=== PATIENT | male | born 1965 | race African-American/Black ===

== ENCOUNTER 2017-07-20 13:39 | Inpatient (IN) | payer OTHER ==
[2017-07-20 16:12] VITALS: BMI 31.0
--- NOTE | 2017-07-20 19:00 | HP ---
COWS - Scale Resting Pulse: 0= IN 80 or Below Sweatin= Chills/Flushing Restless Observation: 1= Difficult to Sit Still Pupil Size: 0= Normal to Room Light Bone or Joint Aches: 2= Severe Diffuse Aches Runny Nose/ Eye Tearin= Runny Nose/Eyes GI Upset > 30mins: 2= Nausea/Diarrhea Tremor Observation: 2= Slight Tremor Visible Yawning Observation: 0= None Anxiety or Irritability: 2=Irritable/Anxious Goose Flesh Skin: 3=Piloerection COWS Score: 15 CIWA Score - CIWA Score Nausea/Vomitin-Mild Nausea/No Vomiting Muscle Tremors: 4-Moderate,w/Arms Extend Anxiety: 4-Mod. Anxious/Guarded Agitation: 4-Moderately Restless Paroxysmal Sweats: 1-Minimal Palms Moist Orientation: 1-Uncertain about Date Tacttile Disturbances: 0-None Auditory Disturbances: 0-None Visual Disturbances: 0-None Headache: 0-None Present CIWA-Ar Total Score: 15 Admission [facility] - HPI Chief Complaint: withdrawal sx Allergies/Adverse Reactions: Allergies Allergy/AdvReac Type Severity Reaction Status Date / Time haloperidol [From Haldol] AdvReac Verified 07/20/17 19:02 haloperidol lactate AdvReac Verified 07/20/17 19:02 [From Haldol] History of Present Illness: 52 years old male with long history of heroin alcohol xanax nicotine dependence has herpes complex II and schizoaffective disorder is admitted to detox Exam Limitations: No Limitations - Ebola screening Have you traveled outside of the country in the last 21 days: No Have you had contact with anyone from an Ebola affected area: No Have you been sick,other than usual withdrawal symptoms: No Do you have a fever: No - Review of Systems Constitutional: Changes in sleep, Weight Stable EENT: reports: No Symptoms Reported Respiratory: reports: No Symptoms reported Cardiac: reports: No Symptoms Reported GI: reports: Nausea, Poor Fluid Intake, Abdominal cramping : reports: No Symptoms Reported Musculoskeletal: reports: Back Pain, Joint Pain, Muscle Pain, Neck Pain Integumentary: reports: Change in Color (both upper arms iv heroin) Neuro: reports: Seizure (last episode 2011), Tremors Endocrine: reports: No Symptoms Reported Hematology: reports: No Symptoms Reported Psychiatric: reports: Judgement Intact, Anxious, Depressed Other Systems: Reviewed and Negative Patient History - Patient Medical History Hx Anemia: No Hx Asthma: No Hx Chronic Obstructive Pulmonary Disease (COPD): No Hx Cancer: No Hx Cardiac Disorders: No Hx Congestive Heart Failure: No Hx Hypertension: No Hx Hypercholesterolemia: No Hx Pacemaker: No HX Cerebrovascular Accident: No Hx Seizures: No Hx Dementia: No Hx Diabetes: No Hx Gastrointestinal Disorders: No Hx Liver Disease: No Hx Genitourinary Disorders: No Hx Sexually Transmitted Disorders: No Hx Renal Disease (ESRD): No Hx Thyroid Disease: No Hx Human Immunodeficiency Virus (HIV): No Hx Hepatitis C: No Hx Depression: No Hx Suicide Attempt: Yes (1974 over dose) Hx Bipolar Disorder: No Hx Schizophrenia: Yes - Patient Surgical History Past Surgical History: No - PPD History Previous Implant?: Yes Documented Results: Negative w/o proof Implanted On Prior [facility] Admission?: No PPD to be Administered?: Yes - Smoking Cessation Smoking history: Current every day smoker Have you smoked in the past 12 months: Yes Aproximately how many cigarettes per day: 8 Cigars Per Day: 0 Hx Chewing Tobacco Use: No Initiated information on smoking cessation: Yes 'Breaking Loose' booklet given: 07/20/17 - Substance & Tx. History Hx Alcohol Use: Yes Hx Substance Use: Yes Substance Use Type: Alcohol, Cocaine, Heroin, Marijuana, Tranquilizers Hx Substance Use Treatment: Yes (04/2017 [facility]) - Substances Abused Alcohol Route: Oral Frequency: Daily Amount used: PINT [id number]+[id number] Age of first use: 12 Date of Last Use: 07/20/17 Alprazolam (Xanax) Route: Oral Frequency: Daily Amount used: 10 MG Age of first use: 26 Date of Last Use: 07/20/17 Heroin Route: Injection Frequency: Daily Amount used: 10 BAGS Age of first use: 26 Date of Last Use: 07/20/17 Family Disease History - Family Disease History Family Disease History: CA: Mother, Other: Father (/UNKNOWN CAUSE) Admission Physical Exam [facility] - Vital Signs Vital Signs: Vital Signs - 24 hr 07/20/17 16:09 Temperature 97.7 F Pulse Rate 76 Respiratory 18 Rate Blood Pressure 130/84 - Physical General Appearance: Yes: Appropriately Dressed, Mild Distress, Obese, Tremorous , Irritable, Sweating, Anxious HEENTM: Yes: Hearing grossly Normal, Normal ENT Inspection, Normocephalic, Normal Voice Respiratory: Yes: Chest Non-Tender, Lungs Clear, Normal Breath Sounds, No Respiratory Distress, No Accessory Muscle Use Neck: Yes: Supple, Trachea in good position Breast: Yes: Breasts Symetrical Cardiology: Yes: Regular Rhythm, Regular Rate, S1, S2 Abdominal: Yes: Non Tender, Soft, Increased Bowel Sounds Genitourinary: Yes: Within Normal Limits Back: Yes: Normal Inspection Musculoskeletal: Yes: full range of Motion, Gait Steady, Back pain, Muscle Pain Extremities: Yes: Normal Inspection, Normal Range of Motion, Non-Tender, Tremors Neurological: Yes: Alert, Motor Strength 5/5, Normal Response Integumentary: Yes: Warm, Track Flores Lymphatic: Yes: Within Normal Limits - Diagnostic (1) Alcohol dependence with uncomplicated withdrawal Current Visit: Yes Status: Acute (2) Opioid dependence with withdrawal Current Visit: Yes Status: Acute (3) Sedative, hypnotic or anxiolytic dependence with withdrawal, uncomplicated Current Visit: Yes Status: Acute (4) Cocaine dependence, uncomplicated Current Visit: Yes Status: Chronic (5) Cannabis dependence, uncomplicated Current Visit: Yes Status: Chronic (6) Herpes simplex complications Current Visit: Yes Status: Chronic (7) Nicotine dependence Current Visit: Yes Status: Acute Qualifiers: Nicotine product type: cigarettes Substance use status: in withdrawal Qualified Code(s): F17.213 - Nicotine dependence, cigarettes, with withdrawal; F17.213 - Nicotine dependence, cigarettes, with withdrawal Cleared for Admission S - Detox or Rehab [facility] Level of Care: Medically Managed Detox Regimen/Protocol: Methadone/Valium S Breath Alcohol Content Breath Alcohol Content: 0 Urine Drug Screen - Results Drug Screen Negative: No Urine Drug Screen Results: THC-Marijuana, POLO-Cocaine, OPI-Opiates, BZO- Benzodiazepines, MTD-Methadone
[2017-07-20] MEDS ORDERED: IBUPROFEN 400 MG TABLET (FP) PO PRN (19:15)
[2017-07-20] MEDS ORDERED: METHADONE HCL 10 MG TABLET (FOR DETOX USE ONLY) PO ONE ×2 (19:15→23:00)
[2017-07-20] MEDS ORDERED: P-EPHED 60MG/TRIPROLIDI 2.5MG TABLET PO PRN (19:15)
[2017-07-20] MEDS ORDERED: guaiFENesin/D-METHORPHAN HB 10 ML UNIT-DOSE CUPS PO PRN (19:15)
[2017-07-20] MEDS ORDERED: diphenhydrAMINE HCL 50 MG CAPSULE PO PRN (19:15)
[2017-07-20] MEDS ORDERED: MAG HYDROX/AL HYDROX/SIMETH 30 ML UNIT-DOSE CUP PO PRN (19:15)
[2017-07-20] MEDS ORDERED: diazePAM 5 MG TABLET PO ONE (19:15)
[2017-07-20] MEDS ORDERED: ACETAMINOPHEN 325 MG TABLET (FP) PO PRN (19:15)
[2017-07-20] MEDS ORDERED: MAGNESIUM CITRATE 300 ML BOTTLE PO PRN (19:15)
[2017-07-20] MEDS ORDERED: MENTHOL/PHENOL 1 EACH UD MM PRN (19:15)
[2017-07-20] MEDS ORDERED: MAGNESIUM HYDROX 2400MG/30ML ORAL SUSPENSION 30 ML CUP PO PRN (19:15)
[2017-07-20] MEDS ORDERED: METHADONE HCL 10 MG TABLET (FOR DETOX USE ONLY) ONE (21:32)
[2017-07-20] MEDS: THIAMINE HCL 100 MG TABLET (FP) PO SCH (21:39)
[2017-07-20] MEDS: diazePAM 5 MG TABLET PO SCH (21:39)
[2017-07-20] MEDS: NICOTINE POLACRILEX 2 MG GUM BC PRN (23:11)
[2017-07-21 00:09] LABS: URINE APPEARANCE SLCLOUDY; URINE BILIRUBIN NEGATIVE (NEGATIVE); URINE BLOOD NEGATIVE (NEGATIVE); URINE COLOR DKYELLOW; URINE GLUCOSE (UA) NEGATIVE (NEGATIVE); URINE KETONE NEGATIVE (NEGATIVE); URINE NITRITE NEGATIVE (NEGATIVE); URINE PROTEIN NEGATIVE (NEGATIVE); URINE UROBILINOGEN NEGATIVE mg/dL (0.2-1.0)
[2017-07-21] MEDS: diazePAM 5 MG TABLET PO SCH ×3 (05:08→22:40)
[2017-07-21] MEDS: NICOTINE POLACRILEX 2 MG GUM BC PRN ×5 (07:50→20:07)
[2017-07-21] MEDS: diazePAM 5 MG TABLET PO PRN ×2 (09:11→18:24)
[2017-07-21] MEDS ORDERED: METHADONE HCL 10 MG TABLET (FOR DETOX USE ONLY) PO SCH (10:00)
[2017-07-21] MEDS: PRENATAL VITAMINS W/ FOLIC ACID TABLET (FP) PO SCH (10:21)
[2017-07-21] MEDS: NICOTINE 14 MG/24 HOURS TOPICAL PATCH TD SCH (10:21)
[2017-07-21] MEDS: valACYclovir HCL 500 MG TABLET (FP) PO SCH (10:22)
[2017-07-21 10:41] LABS: ALBUMIN 3.6 g/dl (3.4-5.0); ALK PHOS 88 U/L (45-117); ANION GAP 8 (8-16); BILIRUBIN,TOTAL 0.4 mg/dL (0.2-1.0); CALCIUM 8.8 mg/dL (8.5-10.1); CO2 25 mmol/L (21-32); GLUCOSE,RANDOM 87 mg/dL (74-106); SGOT/AST 15 U/L (15-37); SGPT/ALT 24 U/L (12-78); TOT PROT 6.8 g/dl (6.4-8.2)
[2017-07-21 10:46] LABS: MCH 30.1 pg (25.7-33.7); MCHC 33.2 g/dl (32.0-35.9); MEAN CELL VOLUME 90.4 fl (80-96); MEAN PLT VOLUME 10.8 fl (7.5-11.1); PLATELET COUNT 250 K/MM3 (134-434); RDW 12.1 % (11.9-15.9); WHITE BLOOD COUNT 6.4 K/mm3 (4.0-10.0)
--- NOTE | 2017-07-21 11:26 | CONSULT ---
[facility] Psychiatric Consult - Data Date of interview: 07/21/17 Admission source: [facility] Identifying data: First admission to [facility] for this 52 y/o AA male seeking detox treatment on for alcohol,cocaine,heroin,marijuana and xanax dependence.Patient is in a common-law relationship,father of two,domiciled, unemployed and supported on SSI benefits. Substance Abuse History: Discussed in this session.Patient confirmed this pattern of substance abuse. Smoking Cessation. Smoking history: Current every day smoker. Have you smoked in the past 12 months: Yes. Aproximately how many cigarettes per day: 8. Cigars Per Day: 0. Hx Chewing Tobacco Use: No. Initiated information on smoking cessation: Yes. 'Breaking Loose' booklet given : 07/20/17. - Substance & Tx. History. Hx Alcohol Use: Yes. Hx Substance Use : Yes. Substance Use Type: Alcohol, Cocaine, Heroin, Marijuana, Tranquilizers. Hx Substance Use Treatment: Yes (04/2017 [facility]). - Substances Abused. Alcohol. Route: Oral. Frequency: Daily. Amount used: PINT VOLKA+24OZX3. Age of first use: 12. Date of Last Use: 07/20/17. Alprazolam (Xanax). Route: Oral. Frequency: Daily. Amount used: 10 MG. Age of first use: 26. Date of Last Use: 07/20/17. Heroin. Route: Injection. Frequency: Daily. Amount used: 10 BAGS. Age of first use: 26. Date of Last Use: 07/20/17 Medical History: Good general health reported. Psychiatric History: Diagnosed with Schizoaffective Disorder.History of multiple psychiatric hospitalizations,which include admissions to [facility] facilities ([facility]) and [facility].Mr Alvarado gets his outpatient psychiatric services at the [facility] in the [place].Medicated with seroquel 100 mg/hs + trazodone + vistaril (unknown doses).Remote history of suicide attempts in 1973 (overdose with medications). Physical/Sexual Abuse/Trauma History: No reported history of abuse. Additional Comment: Urine Drug Screen Results: THC-Marijuana, POLO-Cocaine, OPI- Opiates, BZO-Benzodiazepines, MTD-Methadone.Noted. Mental Status Exam - Mental Status Exam Alert and Oriented to: Time, Place, Person Cognitive Function: Good Patient Appearance: Well Groomed Mood: Hopeful, Euthymic Affect: Appropriate, Normal Range Patient Behavior: Appropriate, Cooperative (friendly and well-mannered) Speech Pattern: Clear, Appropriate Voice Loudness: Normal Thought Process: Intact, Goal Oriented Thought Disorder: Not Present Hallucinations: Denies Suicidal Ideation: Denies Homicidal Ideation: Denies Insight/Judgement: Poor Sleep: Well Appetite: Good Muscle strength/Tone: Normal Gait/Station: Normal Psychiatric Findings - Problem List ([place] 1, 2,3) (1) Schizoaffective disorder Current Visit: Yes Status: Chronic (2) Alcohol dependence with uncomplicated withdrawal Current Visit: Yes Status: Acute (3) Opioid dependence with withdrawal Current Visit: Yes Status: Acute (4) Sedative, hypnotic or anxiolytic dependence with withdrawal, uncomplicated Current Visit: Yes Status: Acute (5) Cannabis dependence, uncomplicated Current Visit: Yes Status: Acute (6) Cocaine dependence, uncomplicated Current Visit: Yes Status: Acute (7) Nicotine dependence Current Visit: Yes Status: Acute Qualifiers: Nicotine product type: cigarettes Substance use status: in withdrawal Qualified Code(s): F17.213 - Nicotine dependence, cigarettes, with withdrawal; F17.213 - Nicotine dependence, cigarettes, with withdrawal (8) Herpes simplex complications Current Visit: Yes Status: Chronic - Initial Treatment Plan Initial Treatment Plan: Psychoeducation.Detoxification.Medications : seroquel 100 mg po hs + trazodone 50 mg po hs.Side effects/benefits are discussed with the patient.Made aware of risk of priapism (trazodone) and metabolic syndrome, oversedation,cardiovascular adverse events and abnormal involuntary movements ( seroquel).Mr Alvarado agrees with this plan of care.Observation.
[2017-07-21 11:55] LABS: URINE LEUK ESTERASE Negative (NEGATIVE)
--- NOTE | 2017-07-21 16:23 | PN ---
[facility] CI[facility] - CIWA Score Nausea/Vomitin-No Nausea/No Vomiting Muscle Tremors: None Anxiety: 4-Mod. Anxious/Guarded Agitation: 2 Paroxysmal Sweats: 3 Orientation: 0-Oriented Tacttile Disturbances: 2-Mild Itch/Numbness/Burn Auditory Disturbances: 2-Mild Harshness/Frighten Visual Disturbances: 2-Mild Sensitivity Headache: 0-None Present CIWA-Ar Total Score: 15 BHS COWS - Scale Resting Pulse: 1= [place] 81-100 Sweatin= Chills/Flushing Restless Observation: 1= Difficult to Sit Still Pupil Size: 0= Normal to Room Light Bone or Joint Aches: 2= Severe Diffuse Aches Runny Nose/ Eye Tearin= Runny Nose/Eyes GI Upset > 30mins: 2= Nausea/Diarrhea Tremor Observation of Outstretched Hands: 0= None Yawning Observation: 1= 1-2x During Session Anxiety or Irritability: 2=Irritable/Anxious Goose Flesh Skin: 0=Smooth Skin COWS Score: 12 S Progress Note (SOAP) Subjective: Body Aches, Sweating, Stomach Cramping, Diarrhea. Objective: PT. A & O X 3, OBSERVED AMBULATING ON UNIT. NO ACUTE DISTRESS. 07/21/17 16:21 Vital Signs Temperature 98.1 F 07/21/17 10:08 Pulse Rate 78 07/21/17 10:08 Respiratory Rate 18 07/21/17 10:08 Blood Pressure 126/84 07/21/17 10:08 O2 Sat by Pulse Oximetry (%) Laboratory Tests 07/20/17 07/21/17 07/21/17 23:20 08:00 08:00 WBC 6.4 RBC 4.33 Hgb 13.0 Hct 39.2 MCV 90.4 MCH 30.1 MCHC 33.2 RDW 12.1 Plt Count 250 MPV 10.8 Sodium Potassium Chloride Carbon Dioxide Anion Gap BUN Creatinine Creat Clearance w eGFR Random Glucose Calcium Total Bilirubin AST ALT Alkaline Phosphatase Total Protein Albumin Urine Color Dkyellow Urine Appearance Slcloudy Urine pH 5.0 Ur Specific [place] >= 1.030 H Urine Protein Negative Urine Glucose (UA) Negative Urine Ketones Negative Urine Blood Negative Urine Nitrite Negative Urine Bilirubin Negative Urine Urobilinogen Negative Ur Leukocyte Esterase Negative RPR Titer Nonreactive 07/21/17 08:30 WBC RBC Hgb Hct MCV MCH MCHC RDW Plt Count MPV Sodium 141 Potassium 4.3 Chloride 108 H Carbon Dioxide 25 Anion Gap 8 BUN 11 Creatinine 1.0 Creat Clearance w eGFR > 60 Random Glucose 87 Calcium 8.8 Total Bilirubin 0.4 AST 15 ALT 24 Alkaline Phosphatase 88 Total Protein 6.8 Albumin 3.6 Urine Color Urine Appearance Urine pH Ur Specific [place] Urine Protein Urine Glucose (UA) Urine Ketones Urine Blood Urine Nitrite Urine Bilirubin Urine Urobilinogen Ur Leukocyte Esterase RPR Titer LABS NOTED. HCV AB RESULT PENDING. 07/21/17 16:22 Assessment: 07/21/17 16:22 WITHDRAWAL SYMPTOMS. Plan: CONTINUE DETOX.
[2017-07-21] MEDS: LOPERAMIDE HCL 2 MG CAPSULE PO PRN (17:30)
--- NOTE | 2017-07-21 19:51 | EKG ---
Test Reason : Blood Pressure : / mmHG Vent. Rate : 070 BPM Atrial Rate : 070 BPM P-R Int : 164 ms QRS Dur : 084 ms QT Int : 426 ms P-R-T Axes : 048 049 022 degrees QTc Int : 460 ms NORMAL SINUS RHYTHM MINIMAL VOLTAGE CRITERIA FOR LVH, MAY BE NORMAL VARIANT BORDERLINE ECG NO PREVIOUS ECGS AVAILABLE REPEAT EKG IF CLINICALLY INDICATED Confirmed by CONNIE TEE MD ([id number]) on 07/21/2017 7:50:48 PM Referred By: Confirmed By:CONNIE TEE MD
[2017-07-21] MEDS: traZODone HCL 50 MG TABLET (FP) PO SCH (22:40)
[2017-07-21] MEDS: THIAMINE HCL 100 MG TABLET (FP) PO SCH (22:40)
[2017-07-21] MEDS: QUEtiapine FUMARATE 100 MG TABLET (FP) PO SCH (22:40)
[2017-07-22] MEDS: diazePAM 5 MG TABLET PO PRN ×4 (01:08→17:38)
[2017-07-22] MEDS: NICOTINE POLACRILEX 2 MG GUM BC PRN ×4 (08:51→22:04)
[2017-07-22] MEDS: METHADONE HCL 5 MG TABLET (FOR DETOX USE ONLY) PO SCH (10:38)
[2017-07-22] MEDS: PRENATAL VITAMINS W/ FOLIC ACID TABLET (FP) PO SCH (10:38)
[2017-07-22] MEDS: diazePAM 5 MG TABLET PO SCH ×2 (10:38→22:03)
[2017-07-22] MEDS: valACYclovir HCL 500 MG TABLET (FP) PO SCH (10:39)
[2017-07-22] MEDS: NICOTINE 14 MG/24 HOURS TOPICAL PATCH TD SCH (10:39)
[2017-07-22 11:00] LABS: HIV 1 & 2 AB NEGATIVE; HIV 1 AGp24 NEGATIVE
[2017-07-22] MEDS: hydrOXYzine PAMOATE 50 MG CAPSULE (FP) PO PRN (14:24)
[2017-07-22] MEDS: LOPERAMIDE HCL 2 MG CAPSULE PO PRN ×2 (15:47→22:03)
--- NOTE | 2017-07-22 19:37 | PN ---
[facility] CIWA - CIWA Score Nausea/Vomitin-No Nausea/No Vomiting Muscle Tremors: 3 Anxiety: 4-Mod. Anxious/Guarded Agitation: 4-Moderately Restless Paroxysmal Sweats: 3 Orientation: 0-Oriented Tacttile Disturbances: 0-None Auditory Disturbances: 0-None Visual Disturbances: 0-None Headache: 0-None Present CIWA-Ar Total Score: 14 S COWS - Scale Resting Pulse: 1= [place] 81-100 Sweatin=Flushed/Facial Moisture Restless Observation: 1= Difficult to Sit Still Pupil Size: 0= Normal to Room Light Bone or Joint Aches: 1= Mild Discomfort Runny Nose/ Eye Tearin= Runny Nose/Eyes GI Upset > 30mins: 2= Nausea/Diarrhea Tremor Observation of Outstretched Hands: 2= Slight Tremor Visible Yawning Observation: 1= 1-2x During Session Anxiety or Irritability: 2=Irritable/Anxious Goose Flesh Skin: 0=Smooth Skin COWS Score: 14 S Progress Note (SOAP) Subjective: Anxiety,tremors,sweating,interrupted sleep,restless Objective: 07/22/17 19:36 Vital Signs - 8 hr 07/22/17 07/22/17 13:34 17:44 Temperature 98.3 F 97.8 F Pulse Rate 82 83 Respiratory 18 18 Rate Blood Pressure 131/92 124/83 Laboratory Tests 07/20/17 07/21/17 07/21/17 23:20 08:00 08:00 WBC 6.4 RBC 4.33 Hgb 13.0 Hct 39.2 MCV 90.4 MCH 30.1 MCHC 33.2 RDW 12.1 Plt Count 250 MPV 10.8 Sodium Potassium Chloride Carbon Dioxide Anion Gap BUN Creatinine Creat Clearance w eGFR Random Glucose Calcium Total Bilirubin AST ALT Alkaline Phosphatase Total Protein Albumin Urine Color Dkyellow Urine Appearance Slcloudy Urine pH 5.0 Ur Specific [place] >= 1.030 H Urine Protein Negative Urine Glucose (UA) Negative Urine Ketones Negative Urine Blood Negative Urine Nitrite Negative Urine Bilirubin Negative Urine Urobilinogen Negative Ur Leukocyte Esterase Negative RPR Titer Nonreactive Hepatitis C Antibody HIV 1&2 Antibody Screen HIV P24 Antigen 07/21/17 07/21/17 07/22/17 08:30 08:40 08:14 WBC RBC Hgb Hct MCV MCH MCHC RDW Plt Count MPV Sodium 141 Potassium 4.3 Chloride 108 H Carbon Dioxide 25 Anion Gap 8 BUN 11 Creatinine 1.0 Creat Clearance w eGFR > 60 Random Glucose 87 Calcium 8.8 Total Bilirubin 0.4 AST 15 ALT 24 Alkaline Phosphatase 88 Total Protein 6.8 Albumin 3.6 Urine Color Urine Appearance Urine pH Ur Specific [place] Urine Protein Urine Glucose (UA) Urine Ketones Urine Blood Urine Nitrite Urine Bilirubin Urine Urobilinogen Ur Leukocyte Esterase RPR Titer Hepatitis C Antibody 0.1 HIV 1&2 Antibody Screen Negative HIV P24 Antigen Negative labs noted Assessment: 07/22/17 19:37 Withdrawal sx. Plan: Continue detox
[2017-07-22] MEDS: QUEtiapine FUMARATE 100 MG TABLET (FP) PO SCH (22:03)
[2017-07-22] MEDS: THIAMINE HCL 100 MG TABLET (FP) PO SCH (22:03)
[2017-07-22] MEDS: traZODone HCL 50 MG TABLET (FP) PO SCH (22:03)
[2017-07-23] MEDS: diazePAM 5 MG TABLET PO PRN ×2 (05:08→15:19)
[2017-07-23] MEDS: LOPERAMIDE HCL 2 MG CAPSULE PO PRN (05:12)
[2017-07-23] MEDS ORDERED: ONDANSETRON *ODT* 4 MG TABLET SL PRN (09:09)
[2017-07-23] MEDS: diazePAM 5 MG TABLET PO SCH ×2 (10:09→22:09)
[2017-07-23] MEDS: cloNIDine HCL 0.1 MG TABLET PO SCH ×2 (10:09→22:10)
[2017-07-23] MEDS: METHADONE HCL 5 MG TABLET (FOR DETOX USE ONLY) PO SCH (10:09)
[2017-07-23] MEDS: NICOTINE 14 MG/24 HOURS TOPICAL PATCH TD SCH (10:09)
[2017-07-23] MEDS: valACYclovir HCL 500 MG TABLET (FP) PO SCH (10:09)
[2017-07-23] MEDS: PRENATAL VITAMINS W/ FOLIC ACID TABLET (FP) PO SCH (10:09)
--- NOTE | 2017-07-23 10:33 | PN ---
[facility] Progress Note (SOAP) Subjective: ANXIETY,SWEATS,IRRITABILITY,SWEATS,MUSCLE ACHES. Objective: 07/23/17 10:33 Vital Signs Temperature 96.8 F L 07/23/17 06:27 Pulse Rate 71 07/23/17 06:27 Respiratory Rate 18 10 06:27 Blood Pressure 119/86 07/23/17 06:27 O2 Sat by Pulse Oximetry (%) Laboratory Last Values WBC 6.4 K/mm3 (4.0-10.0) 07/21/17 08:00 RBC 4.33 M/mm3 (4.00-5.60) 07/21/17 08:00 Hgb 13.0 GM/dL (11.7-16.9) 07/21/17 08:00 Hct 39.2 % (35.4-49) 07/21/17 08:00 MCV 90.4 fl (80-96) 07/21/17 08:00 MCH 30.1 pg (25.7-33.7) 07/21/17 08:00 MCHC 33.2 g/dl (32.0-35.9) 07/21/17 08:00 RDW 12.1 % (11.9-15.9) 07/21/17 08:00 Plt Count 250 K/MM3 (134-434) 07/21/17 08:00 MPV 10.8 fl (7.5-11.1) 07/21/17 08:00 Sodium 141 mmol/L (136-145) 07/21/17 08:30 Potassium 4.3 mmol/L (3.5-5.1) 07/21/17 08:30 Chloride 108 mmol/L (98-107) H 07/21/17 08:30 Carbon Dioxide 25 mmol/L (21-32) 07/21/17 08:30 Anion Gap 8 (8-16) 07/21/17 08:30 BUN 11 mg/dL (7-18) 07/21/17 08:30 Creatinine 1.0 mg/dL (0.7-1.3) 07/21/17 08:30 Creat Clearance w eGFR > 60 (>60) 07/21/17 08:30 Random Glucose 87 mg/dL (74-106) 07/21/17 08:30 Calcium 8.8 mg/dL (8.5-10.1) 07/21/17 08:30 Total Bilirubin 0.4 mg/dL (0.2-1.0) 07/21/17 08:30 AST 15 U/L (15-37) 07/21/17 08:30 ALT 24 U/L (12-78) 07/21/17 08:30 Alkaline Phosphatase 88 U/L (45-117) 07/21/17 08:30 Total Protein 6.8 g/dl (6.4-8.2) 07/21/17 08:30 Albumin 3.6 g/dl (3.4-5.0) 07/21/17 08:30 Urine Color Dkyellow 07/20/17 23:20 Urine Appearance Slcloudy 07/20/17 23:20 Urine pH 5.0 (5.0-8.0) 07/20/17 23:20 Ur Specific [place] >= 1.030 (1.005-1.025) H 07/20/17 23:20 Urine Protein Negative (NEGATIVE) 07/20/17 23:20 Urine Glucose (UA) Negative (NEGATIVE) 07/20/17 23:20 Urine Ketones Negative (NEGATIVE) 07/20/17 23:20 Urine Blood Negative (NEGATIVE) 07/20/17 23:20 Urine Nitrite Negative (NEGATIVE) 07/20/17 23:20 Urine Bilirubin Negative (NEGATIVE) 07/20/17 23:20 Urine Urobilinogen Negative mg/dL (0.2-1.0) 07/20/17 23:20 Ur Leukocyte Esterase Negative (NEGATIVE) 07/20/17 23:20 RPR Titer Nonreactive (NONREACTIVE) 07/21/17 08:00 Hepatitis C Antibody 0.1 s/co ratio (0.0-0.9) 07/21/17 08:40 HIV 1&2 Antibody Screen Negative 07/22/17 08:14 HIV P24 Antigen Negative 07/22/17 08:14 Assessment: 07/23/17 10:33 WITHDRAWAL SX Plan: CONTINUE DETOX
[2017-07-23] MEDS: CYCLOBENZAPRINE HCL 10 MG TABLET (FP) PO SCH ×2 (15:18→22:09)
[2017-07-23] MEDS: NICOTINE POLACRILEX 2 MG GUM BC PRN ×2 (19:06→22:20)
[2017-07-23] MEDS: hydrOXYzine PAMOATE 50 MG CAPSULE (FP) PO PRN (19:09)
[2017-07-23] MEDS: traZODone HCL 50 MG TABLET (FP) PO SCH (22:09)
[2017-07-23] MEDS: QUEtiapine FUMARATE 100 MG TABLET (FP) PO SCH (22:10)
[2017-07-23] MEDS: THIAMINE HCL 100 MG TABLET (FP) PO SCH (22:10)
[2017-07-24] MEDS: hydrOXYzine PAMOATE 50 MG CAPSULE (FP) PO PRN ×2 (05:43→17:06)
[2017-07-24] MEDS: CYCLOBENZAPRINE HCL 10 MG TABLET (FP) PO SCH ×3 (05:43→21:36)
[2017-07-24] MEDS: NICOTINE POLACRILEX 2 MG GUM BC PRN ×2 (05:44→17:07)
[2017-07-24] MEDS ORDERED: diazePAM 5 MG TABLET PO SCH (10:00)
[2017-07-24] MEDS ORDERED: METHADONE HCL 10 MG TABLET (FOR DETOX USE ONLY) PO SCH (10:00)
[2017-07-24] MEDS: valACYclovir HCL 500 MG TABLET (FP) PO SCH (10:03)
[2017-07-24] MEDS: cloNIDine HCL 0.1 MG TABLET PO SCH ×2 (10:03→21:36)
[2017-07-24] MEDS: NICOTINE 14 MG/24 HOURS TOPICAL PATCH TD SCH (10:03)
[2017-07-24] MEDS: PRENATAL VITAMINS W/ FOLIC ACID TABLET (FP) PO SCH (10:03)
--- NOTE | 2017-07-24 12:45 | PN ---
BHS Progress Note (SOAP) Subjective: Body Aches, Diarrhea, Sweating, Anxious. Objective: PT. A & O X 3, OBSERVED AMBULATING ON UNIT. NO ACUTE DISTRESS. 07/24/17 12:43 Vital Signs Temperature 96.8 F L 07/24/17 10:04 Pulse Rate 79 07/24/17 10:04 Respiratory Rate 18 07/24/17 10:04 Blood Pressure 114/82 07/24/17 10:04 O2 Sat by Pulse Oximetry (%) Laboratory Tests 07/20/17 07/21/17 07/21/17 23:20 08:00 08:00 WBC 6.4 RBC 4.33 Hgb 13.0 Hct 39.2 MCV 90.4 MCH 30.1 MCHC 33.2 RDW 12.1 Plt Count 250 MPV 10.8 Sodium Potassium Chloride Carbon Dioxide Anion Gap BUN Creatinine Creat Clearance w eGFR Random Glucose Calcium Total Bilirubin AST ALT Alkaline Phosphatase Total Protein Albumin Urine Color Dkyellow Urine Appearance Slcloudy Urine pH 5.0 Ur Specific [place] >= 1.030 H Urine Protein Negative Urine Glucose (UA) Negative Urine Ketones Negative Urine Blood Negative Urine Nitrite Negative Urine Bilirubin Negative Urine Urobilinogen Negative Ur Leukocyte Esterase Negative RPR Titer Nonreactive Hepatitis C Antibody HIV 1&2 Antibody Screen HIV P24 Antigen 07/21/17 07/21/17 07/22/17 08:30 08:40 08:14 WBC RBC Hgb Hct MCV MCH MCHC RDW Plt Count MPV Sodium 141 Potassium 4.3 Chloride 108 H Carbon Dioxide 25 Anion Gap 8 BUN 11 Creatinine 1.0 Creat Clearance w eGFR > 60 Random Glucose 87 Calcium 8.8 Total Bilirubin 0.4 AST 15 ALT 24 Alkaline Phosphatase 88 Total Protein 6.8 Albumin 3.6 Urine Color Urine Appearance Urine pH Ur Specific [place] Urine Protein Urine Glucose (UA) Urine Ketones Urine Blood Urine Nitrite Urine Bilirubin Urine Urobilinogen Ur Leukocyte Esterase RPR Titer Hepatitis C Antibody 0.1 HIV 1&2 Antibody Screen Negative HIV P24 Antigen Negative LABS NOTED. Assessment: 07/24/17 12:44 WITHDRAWAL SYMPTOMS. Plan: CONTINUE DETOX. PRN IMMODIUM FOR DIARRHEA. INCREASE DAILY PO FLUID INTAKE.
[2017-07-24] MEDS: THIAMINE HCL 100 MG TABLET (FP) PO SCH (21:36)
[2017-07-24] MEDS: QUEtiapine FUMARATE 100 MG TABLET (FP) PO SCH (21:36)
[2017-07-24] MEDS: traZODone HCL 50 MG TABLET (FP) PO SCH (21:36)
[2017-07-25] MEDS: CYCLOBENZAPRINE HCL 10 MG TABLET (FP) PO SCH (05:46)
[2017-07-25] MEDS ORDERED: METHADONE HCL 5 MG TABLET (FOR DETOX USE ONLY) PO SCH (06:00)
[2017-07-25 06:35] VITALS: BP 92/62; PULSE 75; TEMP 96.4
--- NOTE | 2017-07-25 15:34 | DS ---
[facility] Detox Discharge Summary Admission Date: 07/20/17 Discharge Date: 07/25/17 - History Present History: Alcohol Dependence, Cannabis Dependence, Cocaine Dependence, Opioid Dependence, Sedative Dependence Additional Comments: PATIENT GOING TO [facility] ([place], [place] FOR AFTERCARE. PATIENT WAS DISCHARGED FROM DETOX UNIT IN STABLE MEDICAL CONDITION. Pertinent Past History: Nicotine Dependence, History of Herpes Simplex, Schizoaffective disorder. - Physical Exam Results Vital Signs: Vital Signs Temperature 96.4 F L 07/25/17 06:35 Pulse Rate 75 07/25/17 06:35 Respiratory Rate 18 07/25/17 06:35 Blood Pressure 92/62 07/25/17 06:35 O2 Sat by Pulse Oximetry (%) Pertinent Admission Physical Exam Findings: WITHDRAWAL SYMPTOMS. Laboratory Tests 07/20/17 07/21/17 07/21/17 23:20 08:00 08:00 WBC 6.4 RBC 4.33 Hgb 13.0 Hct 39.2 MCV 90.4 MCH 30.1 MCHC 33.2 RDW 12.1 Plt Count 250 MPV 10.8 Sodium Potassium Chloride Carbon Dioxide Anion Gap BUN Creatinine Creat Clearance w eGFR Random Glucose Calcium Total Bilirubin AST ALT Alkaline Phosphatase Total Protein Albumin Urine Color Dkyellow Urine Appearance Slcloudy Urine pH 5.0 Ur Specific [place] >= 1.030 H Urine Protein Negative Urine Glucose (UA) Negative Urine Ketones Negative Urine Blood Negative Urine Nitrite Negative Urine Bilirubin Negative Urine Urobilinogen Negative Ur Leukocyte Esterase Negative RPR Titer Nonreactive Hepatitis C Antibody HIV 1&2 Antibody Screen HIV P24 Antigen 07/21/17 07/21/17 07/22/17 08:30 08:40 08:14 WBC RBC Hgb Hct MCV MCH MCHC RDW Plt Count MPV Sodium 141 Potassium 4.3 Chloride 108 H Carbon Dioxide 25 Anion Gap 8 BUN 11 Creatinine 1.0 Creat Clearance w eGFR > 60 Random Glucose 87 Calcium 8.8 Total Bilirubin 0.4 AST 15 ALT 24 Alkaline Phosphatase 88 Total Protein 6.8 Albumin 3.6 Urine Color Urine Appearance Urine pH Ur Specific [place] Urine Protein Urine Glucose (UA) Urine Ketones Urine Blood Urine Nitrite Urine Bilirubin Urine Urobilinogen Ur Leukocyte Esterase RPR Titer Hepatitis C Antibody 0.1 HIV 1&2 Antibody Screen Negative HIV P24 Antigen Negative LABS NOTED. - Treatment Hospital Course: Detox Protocol Followed, Detoxed Safely, Responded well, Discharged Condition Good, Rehab Referral Accepted Patient has Accepted a Rehab Referral to: [facility] ([place], [place] - Medication Discharge Medications: Ambulatory Orders Quetiapine Fumarate [Seroquel -] 100 mg PO HS 07/20/17 Trazodone HCl [Desyrel -] 50 mg PO HS 07/20/17 Valacyclovir HCl [Valtrex -] 500 mg PO DAILY 07/20/17 Quetiapine Fumarate [Seroquel] 100 mg PO HS #30 tablet 07/21/17 Trazodone HCl [Desyrel -] 50 mg PO HS #30 tablet 07/21/17 - Diagnosis (1) Alcohol dependence with uncomplicated withdrawal Status: Acute (2) Cannabis dependence, uncomplicated Status: Acute (3) Cocaine dependence, uncomplicated Status: Acute (4) Nicotine dependence Status: Chronic Qualifiers: Nicotine product type: cigarettes Substance use status: in withdrawal Qualified Code(s): F17.213 - Nicotine dependence, cigarettes, with withdrawal; F17.213 - Nicotine dependence, cigarettes, with withdrawal (5) Opioid dependence with withdrawal Status: Acute (6) Sedative, hypnotic or anxiolytic dependence with withdrawal, uncomplicated Status: Acute (7) Herpes simplex complications Status: Chronic (8) Schizoaffective disorder Status: Chronic Qualifiers: Schizoaffective disorder type: unspecified Qualified Code(s): F25.9 - Schizoaffective disorder, unspecified; F25.9 - Schizoaffective disorder, unspecified; F25.9 - Schizoaffective disorder, unspecified; F25.9 - Schizoaffective disorder, unspecified - AMA Did Patient Leave Against Medical Advice: No
== END 2017-07-25 05:55 | disposition home or self-care (01) | DRG 773 ==
LOC: YASAS 13:39 → Y3N 19:43
PROVIDERS: ADMIT Internal Medicine; ATTEND Internal Medicine
PROC: HZ2ZZZZ Detoxification Services for Substance Abuse Treatment (ICD-10-PCS; principal; 2017-07-20)
DX: F11.23 Opioid dependence with withdrawal (principal); F13.230 Sedative, hypnotic or anxiolytic dependence with withdrawal, uncomplicated; F10.230 Alcohol dependence with withdrawal, uncomplicated; F14.20 Cocaine dependence, uncomplicated; F12.20 Cannabis dependence, uncomplicated; F17.213 Nicotine dependence, cigarettes, with withdrawal; F25.9 Schizoaffective disorder, unspecified; B00.89 Other herpesviral infection; E66.9 Obesity, unspecified; Z68.31 Body mass index [BMI] 31.0-31.9, adult; Z88.8 Allergy status to other drugs, medicaments and biological substances; Z91.5 Personal history of self-harm
CPT/HCPCS: 36415; 80053; 81003; 85027; 86593; 86803; 87389; 93005; 93010

== ENCOUNTER 2022-08-19 15:31 | Inpatient (IN) | payer OTHER ==
[2022-08-19 16:31] VITALS: BMI 25.5
[2022-08-19] MEDS ORDERED: IBUPROFEN 400 MG TABLET (FP) PO PRN (18:28)
[2022-08-19] MEDS ORDERED: BENZOCAINE/MENTHOL (CHLORASEPTIC ) LOZENGE MM PRN (18:28)
[2022-08-19] MEDS ORDERED: NICOTINE 10 MG CARTRIDGE (INHALER) IH PRN (18:28)
[2022-08-19] MEDS ORDERED: LOPERAMIDE HCL 2 MG CAPSULE PO PRN (18:28)
[2022-08-19] MEDS ORDERED: DICYCLOMINE HCL 10 MG CAPSULE PO PRN (18:28)
[2022-08-19] MEDS ORDERED: BISMUTH SUBSALICYLATE 524 MG/30 ML PO PRN (18:28)
[2022-08-19] MEDS ORDERED: ACETAMINOPHEN 325 MG TABLET (FP) PO PRN ×2 (18:28)
[2022-08-19] MEDS ORDERED: IBUPROFEN 600 MG TABLET (FP) PO PRN (18:28)
[2022-08-19] MEDS ORDERED: MAG HYDROX/AL HYDROX/SIMETH 30 ML UNIT-DOSE CUP PO PRN (18:28)
[2022-08-19] MEDS ORDERED: METHOCARBAMOL 500 MG TABLET PO PRN (18:28)
[2022-08-19] MEDS ORDERED: NALOXONE HCL (KLOXXADO) 8 MG SPRAY NS PRN (18:28)
[2022-08-19] MEDS ORDERED: MAGNESIUM HYDROX 2400MG/30ML ORAL SUSPENSION 30 ML CUP PO PRN (18:28)
[2022-08-19] MEDS ORDERED: MAGNESIUM CITRATE 300 ML BOTTLE PO PRN (18:28)
[2022-08-19] MEDS ORDERED: methaDONE HCL 10 MG TABLET (FOR DETOX USE ONLY) PO ONE (19:00)
[2022-08-19] MEDS ORDERED: methaDONE HCL 10 MG TABLET (FOR DETOX USE ONLY) ONE (19:01)
[2022-08-19] MEDS: cloNIDine HCL 0.1 MG TABLET PO PRN (19:19)
[2022-08-19] MEDS: THIAMINE HCL 100 MG TABLET (FP) PO SCH (21:54)
[2022-08-19] MEDS: hydrOXYzine PAMOATE 25 MG CAPSULE (FP) PO PRN (21:58)
[2022-08-19] MEDS ORDERED: MELATONIN 5 MG TABLETS PO SCH (22:00)
[2022-08-19] MEDS: diazePAM 5 MG TABLET PO PRN (22:33)
[2022-08-20] MEDS: PRENATAL VITAMINS W/ FOLIC ACID TABLET (FP) PO SCH (10:23)
[2022-08-20] MEDS: ONDANSETRON *ODT* 4 MG TABLET SL PRN (10:25)
[2022-08-20] MEDS: diazePAM 5 MG TABLET PO PRN (10:29)
[2022-08-20 11:26] LABS: HEMATOCRIT 36.7 % (35.4-49); HEMOGLOBIN 12.4 GM/dL (11.7-16.9); MCH 31.3 pg (25.7-33.7); MCHC 33.9 g/dl (32.0-35.9); MEAN CELL VOLUME 92.4 fl (80-96); MEAN PLT VOLUME 10.1 fl (7.5-11.1); PLATELET COUNT 355 10^3/uL (134-434); RBC 3.97 M/mm3 (4.00-5.60); RDW 12.2 % (11.9-15.9); WHITE BLOOD COUNT 7.1 K/mm3 (4.0-10.0)
[2022-08-20 11:37] LABS: CALCIUM 9.2 mg/dL (8.5-10.1)
[2022-08-20 11:38] LABS: ALBUMIN 3.5 g/dl (3.4-5.0); BLOOD UREA NITROGEN 9.4 mg/dL (7-18)
[2022-08-20 11:41] LABS: CREATININE 0.9 mg/dL (0.55-1.3)
[2022-08-20 11:42] LABS: BILIRUBIN,TOTAL 0.4 mg/dL (0.2-1); TOT PROT 7.2 g/dl (6.4-8.2)
[2022-08-20] MEDS ORDERED: FLU VACC QS2022-23(6MOS UP)/PF 60 MCG/0.5 ML SYRINGE IM ONE (12:00)
[2022-08-20] MEDS: NICOTINE POLACRILEX 4 MG GUM BUC PRN (12:34)
[2022-08-20] MEDS: TRIMETHOBENZAMIDE HCL 200MG/2ML INJ IM PRN (12:34)
[2022-08-20] MEDS: QUEtiapine FUMARATE 50 MG TABLET PO SCH (22:33)
[2022-08-20] MEDS: THIAMINE HCL 100 MG TABLET (FP) PO SCH (22:33)
[2022-08-21] MEDS: hydrOXYzine PAMOATE 25 MG CAPSULE (FP) PO PRN (02:51)
[2022-08-21] MEDS: diazePAM 5 MG TABLET PO PRN (02:51)
[2022-08-21] MEDS: ONDANSETRON *ODT* 4 MG TABLET SL PRN (05:21)
[2022-08-21] MEDS: TRIMETHOBENZAMIDE HCL 200MG/2ML INJ IM PRN (08:30)
[2022-08-21] MEDS ORDERED: methaDONE HCL 10 MG TABLET (FOR DETOX USE ONLY) PO ONE (10:00)
[2022-08-21] MEDS: cloNIDine HCL 0.1 MG TABLET PO PRN (10:14)
[2022-08-21] MEDS: PRENATAL VITAMINS W/ FOLIC ACID TABLET (FP) PO SCH (10:14)
[2022-08-21] MEDS ORDERED: FLU VACC QS2022-23(6MOS UP)/PF 60 MCG/0.5 ML SYRINGE IM ONE (12:00)
[2022-08-21] MEDS: NICOTINE POLACRILEX 4 MG GUM BUC PRN (13:59)
[2022-08-21 18:36] VITALS: BP 79/35; PULSE 56; RESP 14; TEMP 95.7
[2022-08-21] MEDS: diazePAM 5 MG TABLET PO SCH ×2 (18:59→23:20)
[2022-08-21] MEDS: QUEtiapine FUMARATE 50 MG TABLET PO SCH (23:20)
[2022-08-21] MEDS: THIAMINE HCL 100 MG TABLET (FP) PO SCH (23:23)
[2022-08-22] MEDS ORDERED: diazePAM 5 MG TABLET PO SCH (06:00)
[2022-08-22] MEDS ORDERED: FLU VACC QS2022-23(6MOS UP)/PF 60 MCG/0.5 ML SYRINGE IM ONE (12:00)
[2022-08-23] MEDS ORDERED: diazePAM 5 MG TABLET PO SCH (06:00)
[2022-08-23] MEDS ORDERED: methaDONE HCL 10 MG TABLET (FOR DETOX USE ONLY) PO ONE (10:00)
[2022-08-24] MEDS ORDERED: diazePAM 5 MG TABLET PO ONE (06:00)
== END 2022-08-22 08:39 | disposition short-term general hospital (02) | DRG 773 ==
LOC: SUATTDRO 15:31 → YASAS 15:31 → Y6N 18:57
PROVIDERS: ADMIT Allergy & Immunology; ATTEND Surgery
PROC: HZ2ZZZZ Detoxification Services for Substance Abuse Treatment (ICD-10-PCS; principal; 2022-08-19)
DX: F10.230 Alcohol dependence with withdrawal, uncomplicated (principal); F11.20 Opioid dependence, uncomplicated; F14.20 Cocaine dependence, uncomplicated; F12.20 Cannabis dependence, uncomplicated; F17.210 Nicotine dependence, cigarettes, uncomplicated; F19.282 Other psychoactive substance dependence with psychoactive substance-induced sleep disorder; F19.24 Other psychoactive substance dependence with psychoactive substance-induced mood disorder; F25.9 Schizoaffective disorder, unspecified; L03.113 Cellulitis of right upper limb; R11.2 Nausea with vomiting, unspecified; Z56.0 Unemployment, unspecified; Z59.02 Unsheltered homelessness; Z88.8 Allergy status to other drugs, medicaments and biological substances
CPT/HCPCS: 36415; 73590-TC-RT-FY; 80053; 83735; 84100; 84443; 85025; 85027; 86780; 87811; 93971-TC; C9803-CS; G0378; Q0162; U0003; U0005

== ENCOUNTER 2022-08-21 18:59 | Inpatient (IN) | payer OTHER ==
[2022-08-21 19:55] VITALS: BMI 19.8
[2022-08-21] MEDS ORDERED: LACTATED RINGERS SOLUTION 1000 ML INFUS.BAG IV ONE ×2 (20:19→23:39)
[2022-08-21 23:04] LABS: BASO % 0.5 % (0-2.0); EOS % 1.9 % (0-4.5); HEMATOCRIT 30.8 % (35.4-49); LYMPH % 39.1 % (8-40); MCHC 35.5 g/dl (32.0-35.9); MEAN PLT VOLUME 8.8 fl (7.5-11.1); MONO % 12.2 % (3.8-10.2); NEUT % 46.3 % (42.8-82.8); PLATELET COUNT 298 10^3/uL (134-434); RBC 3.43 M/mm3 (4.00-5.60); RDW 12.1 % (11.9-15.9); WHITE BLOOD COUNT 7.7 K/mm3 (4.0-10.0)
[2022-08-21 23:34] LABS: CALCIUM 8.2 mg/dL (8.5-10.1)
[2022-08-21 23:35] LABS: BLOOD UREA NITROGEN 18.9 mg/dL (7-18); MAGNESIUM 1.6 mg/dL (1.8-2.4)
[2022-08-21 23:38] LABS: CREATININE 1.5 mg/dL (0.55-1.3)
[2022-08-21] MEDS ORDERED: MAGNESIUM SULF 50% (8.12 MEQ/2 ML-1 GM VIAL) IVPB ONE (23:39)
[2022-08-21 23:40] LABS: BILIRUBIN,TOTAL 0.3 mg/dL (0.2-1); TOT PROT 5.9 g/dl (6.4-8.2)
[2022-08-21] MEDS ORDERED: diazePAM 5 MG TABLET PO ONE (23:40)
[2022-08-21] MEDS ORDERED: diazePAM 5 MG TABLET ONE (23:45)
[2022-08-21] MEDS ORDERED: LOPERAMIDE HCL 2 MG CAPSULE PO ONE (23:45)
[2022-08-21] MEDS ORDERED: MAGNESIUM SULFATE IN WATER 2 GM/50 ML IVPB IVPB ONE (23:45)
[2022-08-22] MEDS ORDERED: LOPERAMIDE HCL 2 MG CAPSULE ONE ×2 (00:15→02:55)
[2022-08-22] MEDS ORDERED: SODIUM CHLORIDE 1,000 ML IV SCH (02:00)
[2022-08-22] MEDS ORDERED: methaDONE HCL 10 MG TABLET ONE (02:34)
[2022-08-22 04:00] VITALS: RESP 16
[2022-08-22] MEDS ORDERED: LOPERAMIDE HCL 2 MG CAPSULE PO ONE (05:40)
[2022-08-22] MEDS ORDERED: HEPARIN NA (PORCINE) 5,000 UNITS/ML 1ML VIAL SQ SCH (06:00)
[2022-08-22 08:58] VITALS: BP 113/75; PULSE 65; TEMP 98
[2022-08-23] MEDS ORDERED: methaDONE HCL 10 MG TABLET PO ONE (06:00)
== END 2022-08-22 09:15 | disposition left against medical advice (07) | DRG 422 ==
LOC: JER 18:59 → JERBED 23:43 → OBSVTOIN 08-22 01:48
PROVIDERS: ADMIT Internal Medicine; ATTEND Internal Medicine
DX: E86.0 Dehydration (principal); F11.23 Opioid dependence with withdrawal; R19.7 Diarrhea, unspecified; F12.20 Cannabis dependence, uncomplicated
CPT/HCPCS: 0241U-QW; 36415; 80053; 83735; 84484; 85025; 93005; 93010; 99285-25; G0378

== ENCOUNTER 2022-09-16 09:43 | Inpatient (IN) | payer OTHER ==
[2022-09-16 10:50] VITALS: BMI 27.4
[2022-09-16] MEDS ORDERED: BISMUTH SUBSALICYLATE 524 MG/30 ML PO PRN (12:02)
[2022-09-16] MEDS ORDERED: NALOXONE HCL (KLOXXADO) 8 MG SPRAY NS PRN (12:02)
[2022-09-16] MEDS ORDERED: cloNIDine HCL 0.1 MG TABLET PO PRN (12:02)
[2022-09-16] MEDS ORDERED: IBUPROFEN 400 MG TABLET (FP) PO PRN (12:02)
[2022-09-16] MEDS ORDERED: LOPERAMIDE HCL 2 MG CAPSULE PO PRN (12:02)
[2022-09-16] MEDS ORDERED: MAGNESIUM HYDROX 2400MG/30ML ORAL SUSPENSION 30 ML CUP PO PRN (12:02)
[2022-09-16] MEDS ORDERED: NICOTINE 10 MG CARTRIDGE (INHALER) IH PRN (12:02)
[2022-09-16] MEDS ORDERED: IBUPROFEN 600 MG TABLET (FP) PO PRN (12:02)
[2022-09-16] MEDS ORDERED: chlordiazePOXIDE HCL 25 MG CAPSULE PO PRN (12:02)
[2022-09-16] MEDS ORDERED: DICYCLOMINE HCL 10 MG CAPSULE PO PRN (12:02)
[2022-09-16] MEDS ORDERED: POLYETHYLENE GLYCOL (HEALTHYLAX) 3350 17 GM PACKET PO PRN (12:02)
[2022-09-16] MEDS ORDERED: NICOTINE POLACRILEX 2 MG GUM BUC PRN (12:02)
[2022-09-16] MEDS ORDERED: methaDONE HCL 10 MG TABLET (FOR DETOX USE ONLY) PO ONE (12:02)
[2022-09-16] MEDS ORDERED: ONDANSETRON *ODT* 4 MG TABLET SL PRN (12:02)
[2022-09-16] MEDS ORDERED: BENZOCAINE/MENTHOL (CHLORASEPTIC ) LOZENGE MM PRN (12:02)
[2022-09-16] MEDS ORDERED: ACETAMINOPHEN 325 MG TABLET (FP) PO PRN ×2 (12:02)
[2022-09-16] MEDS ORDERED: MAG HYDROX/AL HYDROX/SIMETH 30 ML UNIT-DOSE CUP PO PRN (12:02)
[2022-09-16] MEDS: NICOTINE 14 MG/24 HOURS TOPICAL PATCH TD SCH (16:35)
[2022-09-16] MEDS: chlordiazePOXIDE HCL 25 MG CAPSULE PO SCH ×2 (18:13→22:52)
[2022-09-16] MEDS ORDERED: MELATONIN 5 MG TABLETS PO SCH (22:00)
[2022-09-16] MEDS: THIAMINE HCL 100 MG TABLET (FP) PO SCH (22:51)
[2022-09-16] MEDS: METHOCARBAMOL 500 MG TABLET PO PRN (22:51)
[2022-09-16] MEDS: QUEtiapine FUMARATE 100 MG TABLET (FP) PO SCH (22:52)
[2022-09-16] MEDS: traZODone HCL 50 MG TABLET (FP) PO SCH (22:52)
[2022-09-17] MEDS: chlordiazePOXIDE HCL 25 MG CAPSULE PO SCH ×4 (05:49→22:23)
[2022-09-17] MEDS ORDERED: NICOTINE 21 MG/24 HOURS TOPICAL PATCH TD SCH (10:00)
[2022-09-17] MEDS: NICOTINE 14 MG/24 HOURS TOPICAL PATCH TD SCH (10:40)
[2022-09-17] MEDS: PRENATAL VITAMINS W/ FOLIC ACID TABLET (FP) PO SCH (10:40)
[2022-09-17 11:18] LABS: HEMATOCRIT 25.8 % (35.4-49); HEMOGLOBIN 8.8 GM/dL (11.7-16.9); MCH 30.7 pg (25.7-33.7); MCHC 33.9 g/dl (32.0-35.9); MEAN CELL VOLUME 90.4 fl (80-96); MEAN PLT VOLUME 9.4 fl (7.5-11.1); PLATELET COUNT 477 10^3/uL (134-434); RBC 2.86 M/mm3 (4.00-5.60); RDW 12.4 % (11.9-15.9); WHITE BLOOD COUNT 5.4 K/mm3 (4.0-10.0)
[2022-09-17 12:16] LABS: BLOOD UREA NITROGEN 14.8 mg/dL (7-18)
[2022-09-17 12:17] LABS: CALCIUM 8.8 mg/dL (8.5-10.1)
[2022-09-17 12:23] LABS: ALBUMIN 2.6 g/dl (3.4-5.0)
[2022-09-17 12:26] LABS: CREATININE 0.8 mg/dL (0.55-1.3)
[2022-09-17 12:28] LABS: BILIRUBIN,TOTAL 0.2 mg/dL (0.2-1)
[2022-09-17 16:21] LABS: URINE APPEARANCE CLEAR; URINE BILIRUBIN NEGATIVE (NEGATIVE); URINE COLOR YELLOW; URINE GLUCOSE (UA) NEGATIVE (NEGATIVE); URINE KETONE NEGATIVE (NEGATIVE); URINE LEUK ESTERASE NEGATIVE (NEGATIVE); URINE NITRITE NEGATIVE (NEGATIVE); URINE PROTEIN NEGATIVE (NEGATIVE); URINE UROBILINOGEN 0.2 mg/dL (0.2-1.0)
[2022-09-17] MEDS: hydrOXYzine PAMOATE 25 MG CAPSULE (FP) PO PRN ×2 (17:21→22:23)
[2022-09-17] MEDS: THIAMINE HCL 100 MG TABLET (FP) PO SCH (22:23)
[2022-09-17] MEDS: traZODone HCL 50 MG TABLET (FP) PO SCH (22:23)
[2022-09-17] MEDS: QUEtiapine FUMARATE 100 MG TABLET (FP) PO SCH (22:23)
[2022-09-17] MEDS: METHOCARBAMOL 500 MG TABLET PO PRN (22:23)
[2022-09-18] MEDS: chlordiazePOXIDE HCL 25 MG CAPSULE PO SCH ×4 (07:13→22:15)
[2022-09-18] MEDS ORDERED: methaDONE HCL 10 MG TABLET (FOR DETOX USE ONLY) PO ONE (10:00)
[2022-09-18] MEDS: PRENATAL VITAMINS W/ FOLIC ACID TABLET (FP) PO SCH (10:03)
[2022-09-18] MEDS: NICOTINE 14 MG/24 HOURS TOPICAL PATCH TD SCH (10:05)
[2022-09-18] MEDS: THIAMINE HCL 100 MG TABLET (FP) PO SCH (22:15)
[2022-09-18] MEDS: METHOCARBAMOL 500 MG TABLET PO PRN (22:16)
[2022-09-18] MEDS: traZODone HCL 50 MG TABLET (FP) PO SCH (22:16)
[2022-09-18] MEDS: QUEtiapine FUMARATE 100 MG TABLET (FP) PO SCH (22:16)
[2022-09-19] MEDS ORDERED: chlordiazePOXIDE HCL 10 MG CAPSULE PO PRN
[2022-09-19] MEDS: chlordiazePOXIDE HCL 10 MG CAPSULE PO SCH ×4 (06:00→22:09)
[2022-09-19 09:25] LABS: HEMATOCRIT 28.5 % (35.4-49); HEMOGLOBIN 9.6 GM/dL (11.7-16.9); MCH 30.5 pg (25.7-33.7); MCHC 33.5 g/dl (32.0-35.9); MEAN CELL VOLUME 91.1 fl (80-96); MEAN PLT VOLUME 9.1 fl (7.5-11.1); PLATELET COUNT 568 10^3/uL (134-434); RBC 3.13 M/mm3 (4.00-5.60); RDW 12.9 % (11.9-15.9); WHITE BLOOD COUNT 6.1 K/mm3 (4.0-10.0)
[2022-09-19] MEDS: NICOTINE 14 MG/24 HOURS TOPICAL PATCH TD SCH (10:07)
[2022-09-19] MEDS: PRENATAL VITAMINS W/ FOLIC ACID TABLET (FP) PO SCH (10:07)
[2022-09-19] MEDS: METHOCARBAMOL 500 MG TABLET PO PRN (18:33)
[2022-09-19] MEDS: hydrOXYzine PAMOATE 25 MG CAPSULE (FP) PO PRN (18:34)
[2022-09-19] MEDS: traZODone HCL 50 MG TABLET (FP) PO SCH (22:08)
[2022-09-19] MEDS: QUEtiapine FUMARATE 100 MG TABLET (FP) PO SCH (22:08)
[2022-09-19] MEDS: THIAMINE HCL 100 MG TABLET (FP) PO SCH (22:09)
[2022-09-20] MEDS: chlordiazePOXIDE HCL 10 MG CAPSULE PO SCH ×2 (05:45→17:55)
[2022-09-20] MEDS: METHOCARBAMOL 500 MG TABLET PO PRN (05:46)
[2022-09-20] MEDS: NICOTINE 14 MG/24 HOURS TOPICAL PATCH TD SCH (09:57)
[2022-09-20] MEDS: hydrOXYzine PAMOATE 25 MG CAPSULE (FP) PO PRN ×2 (09:57→17:56)
[2022-09-20] MEDS: PRENATAL VITAMINS W/ FOLIC ACID TABLET (FP) PO SCH (09:57)
[2022-09-20] MEDS ORDERED: methaDONE HCL 10 MG TABLET (FOR DETOX USE ONLY) PO ONE (10:00)
[2022-09-20] MEDS ORDERED: guaiFENesin 200 MG/10 ML 10 ML UNIT-DOSE CUPS PO PRN (12:26)
[2022-09-20 21:41] VITALS: RESP 18
[2022-09-20] MEDS: THIAMINE HCL 100 MG TABLET (FP) PO SCH (22:04)
[2022-09-20] MEDS: QUEtiapine FUMARATE 100 MG TABLET (FP) PO SCH (22:04)
[2022-09-20] MEDS: traZODone HCL 50 MG TABLET (FP) PO SCH (22:05)
[2022-09-21] MEDS ORDERED: chlordiazePOXIDE HCL 10 MG CAPSULE PO ONE (05:00)
[2022-09-21 09:22] VITALS: BP 112/69; PULSE 91; TEMP 98.2
== END 2022-09-21 10:17 | disposition other institution (70) | DRG 773 ==
LOC: YASAS 09:43 → Y3N 12:10
PROVIDERS: ADMIT Allergy & Immunology; ATTEND Surgery
PROC: HZ2ZZZZ Detoxification Services for Substance Abuse Treatment (ICD-10-PCS; principal; 2022-09-16)
DX: F11.23 Opioid dependence with withdrawal (principal); F10.230 Alcohol dependence with withdrawal, uncomplicated; F13.20 Sedative, hypnotic or anxiolytic dependence, uncomplicated; F14.20 Cocaine dependence, uncomplicated; F12.20 Cannabis dependence, uncomplicated; F17.210 Nicotine dependence, cigarettes, uncomplicated; F25.9 Schizoaffective disorder, unspecified; F19.282 Other psychoactive substance dependence with psychoactive substance-induced sleep disorder; F19.24 Other psychoactive substance dependence with psychoactive substance-induced mood disorder; D64.9 Anemia, unspecified; R05.9 Cough, unspecified; H72.92 Unspecified perforation of tympanic membrane, left ear; T16.2XXA Foreign body in left ear, initial encounter; X58.XXXA Exposure to other specified factors, initial encounter; Y93.89 Activity, other specified; Y92.9 Unspecified place or not applicable; Y99.9 Unspecified external cause status; Z88.8 Allergy status to other drugs, medicaments and biological substances; Z59.02 Unsheltered homelessness; Z56.0 Unemployment, unspecified
CPT/HCPCS: 36415; 80053; 81003; 85027; 86780; 87491; 87591; 87811; C9803-CS; U0003; U0005

== ENCOUNTER 2022-09-19 12:25 | Emergency (ER) | payer OTHER ==
[2022-09-19 12:55] VITALS: BP 128/73; PULSE 98; RESP 16; TEMP 98.4; BMI 22.8
== END 2022-09-19 15:00 | disposition home or self-care (01) ==
LOC: JER 12:25
DX: T16.2XXA Foreign body in left ear, initial encounter (principal)
CPT/HCPCS: 99282-25

== ENCOUNTER 2023-12-09 10:19 | Inpatient (IN) | payer OTHER ==
[2023-12-09 11:17] VITALS: BMI 24.6
[2023-12-09] MEDS ORDERED: ACETAMINOPHEN 325 MG TABLET (FP) PO PRN (13:05)
[2023-12-09] MEDS ORDERED: BISMUTH SUBSALICYLATE 524 MG/30 ML PO PRN (13:05)
[2023-12-09] MEDS ORDERED: IBUPROFEN 600 MG TABLET (FP) PO PRN (13:05)
[2023-12-09] MEDS ORDERED: IBUPROFEN 400 MG TABLET (FP) PO PRN (13:05)
[2023-12-09] MEDS ORDERED: LOPERAMIDE HCL 2 MG CAPSULE PO PRN (13:05)
[2023-12-09] MEDS ORDERED: NALOXONE HCL (KLOXXADO) 8 MG SPRAY NS PRN (13:05)
[2023-12-09] MEDS ORDERED: BENZONATATE 200 MG CAPSULE PO PRN (13:05)
[2023-12-09] MEDS ORDERED: BENZOCAINE/MENTHOL (CHLORASEPTIC ) LOZENGE MM PRN (13:05)
[2023-12-09] MEDS ORDERED: NALOXONE HCL 0.4 MG/ML VIAL IM PRN (13:05)
[2023-12-09] MEDS ORDERED: guaiFENesin 600 MG TABLET.ER (FP) PO PRN (13:05)
[2023-12-09] MEDS ORDERED: MAGNESIUM HYDROX 2400MG/30ML ORAL SUSPENSION 30 ML CUP PO PRN (13:05)
[2023-12-09] MEDS ORDERED: POLYETHYLENE GLYCOL (HEALTHYLAX) 3350 17 GM PACKET PO PRN (13:05)
[2023-12-09] MEDS ORDERED: TRIMETHOBENZAMIDE HCL 200MG/2ML INJ IM PRN (13:26)
[2023-12-09] MEDS ORDERED: ONDANSETRON 4 MG/2 ML VIAL ONE (13:27)
[2023-12-09] MEDS ORDERED: TRIMETHOBENZAMIDE HCL 200MG/2ML INJ IM ONE (13:33)
[2023-12-09] MEDS: TRIMETHOBENZAMIDE HCL 200MG/2ML INJ IM ONE (13:36)
[2023-12-09] MEDS ORDERED: methaDONE HCL 10 MG TABLET (FOR DETOX USE ONLY) ONE (13:53)
[2023-12-09] MEDS: methaDONE HCL 10 MG TABLET (FOR DETOX USE ONLY) PO ONE (14:01)
[2023-12-09] MEDS: ONDANSETRON *ODT* 4 MG TABLET SL PRN (16:38)
[2023-12-09] MEDS: diazePAM 5 MG TABLET PO SCH (17:09)
[2023-12-09] MEDS: MAG HYDROX/AL HYDROX/SIMETH 30 ML UNIT-DOSE CUP PO PRN (19:14)
[2023-12-09] MEDS: cloNIDine HCL 0.1 MG TABLET PO PRN (19:44)
[2023-12-09] MEDS: DICYCLOMINE HCL 10 MG CAPSULE PO PRN (19:44)
[2023-12-09] MEDS: MELATONIN 5 MG TABLETS PO SCH (23:03)
[2023-12-09] MEDS: NICOTINE POLACRILEX 2 MG LOZENGE BC PRN (23:07)
[2023-12-09] MEDS: THIAMINE HCL 100 MG TABLET (FP) PO SCH (23:18)
[2023-12-09] MEDS: FLUTICASONE PROP 0.05% 16 GM NASAL SPRAY NS SCH (23:27)
[2023-12-10] MEDS: diazePAM 5 MG TABLET PO PRN (03:26)
[2023-12-10] MEDS: PRENATAL VITAMINS W/ FOLIC ACID TABLET (FP) PO SCH (10:02)
[2023-12-10] MEDS: hydrOXYzine PAMOATE 25 MG CAPSULE (FP) PO PRN (10:02)
[2023-12-10] MEDS: METHOCARBAMOL 500 MG TABLET PO PRN (10:02)
[2023-12-10 10:45] LABS: HEMOGLOBIN 11.9 GM/dL (11.7-16.9); MCH 30.7 pg (25.7-33.7); MCHC 34.1 g/dl (32.0-35.9); MEAN CELL VOLUME 90.1 fl (80-96); MEAN PLT VOLUME 10.9 fl (7.5-11.1); PLATELET COUNT 261 10^3/uL (134-434); RBC 3.89 M/mm3 (4.00-5.60); RDW 12.3 % (11.9-15.9); WHITE BLOOD COUNT 12.2 K/mm3 (4.0-10.0)
[2023-12-10 10:48] LABS: CHLORIDE 101 mmol/L (98-107); POTASSIUM 3.7 mmol/L (3.5-5.1); SODIUM 135 mmol/L (136-145)
[2023-12-10 10:55] LABS: ALBUMIN 4.1 g/dl (3.4-5.0); GLUCOSE,RANDOM 108 mg/dL (74-106); SGPT/ALT 20 U/L (13-61)
[2023-12-10 10:56] LABS: ANION GAP 12 mmol/L (4-13); BLOOD UREA NITROGEN 9.6 mg/dL (7-18); CO2 23 mmol/L (21-32); CREATININE 0.9 mg/dL (0.55-1.3)
[2023-12-10 10:57] LABS: BILIRUBIN,TOTAL 0.7 mg/dL (0.2-1); TOT PROT 7.8 g/dl (6.4-8.2)
[2023-12-10 10:58] LABS: ALK PHOS 104 U/L (45-117)
[2023-12-10 10:59] LABS: SGOT/AST 29 U/L (15-37)
[2023-12-10] MEDS: LACTULOSE 20 GM/30 ML UDC (FOR ORAL USE ONLY) PO SCH (22:20)
[2023-12-11] MEDS: diazePAM 5 MG TABLET PO SCH (05:35)
[2023-12-11] MEDS: methaDONE HCL 10 MG TABLET (FOR DETOX USE ONLY) PO ONE (09:39)
[2023-12-11] MEDS: NICOTINE POLACRILEX 2 MG GUM BC PRN (11:21)
[2023-12-12 05:05] VITALS: BP 138/68; PULSE 79; RESP 18; TEMP 97.8
[2023-12-12] MEDS: diazePAM 5 MG TABLET PO SCH (05:56)
[2023-12-13] MEDS ORDERED: diazePAM 5 MG TABLET PO ONE (06:00)
[2023-12-13] MEDS ORDERED: methaDONE HCL 10 MG TABLET (FOR DETOX USE ONLY) PO ONE (10:00)
== END 2023-12-12 06:13 | disposition left against medical advice (07) | DRG 770 ==
LOC: YASAS 10:19 → Y6N 13:59
PROVIDERS: ADMIT Allergy & Immunology; ATTEND Surgery
PROC: HZ2ZZZZ Detoxification Services for Substance Abuse Treatment (ICD-10-PCS; principal; 2023-12-09)
DX: F11.23 Opioid dependence with withdrawal (principal); F10.230 Alcohol dependence with withdrawal, uncomplicated; F14.20 Cocaine dependence, uncomplicated; F12.20 Cannabis dependence, uncomplicated; F17.210 Nicotine dependence, cigarettes, uncomplicated; F20.9 Schizophrenia, unspecified; E72.20 Disorder of urea cycle metabolism, unspecified; G47.00 Insomnia, unspecified; R74.8 Abnormal levels of other serum enzymes; Z88.8 Allergy status to other drugs, medicaments and biological substances
CPT/HCPCS: 36415; 80053; 80307; 82140; 85027; 86780; 87635; 93005; 93010; Q0162

== ENCOUNTER 2023-12-19 13:24 | Inpatient (IN) | payer OTHER ==
[2023-12-19 14:47] VITALS: BMI 23.7
[2023-12-19] MEDS ORDERED: cloNIDine HCL 0.1 MG TABLET PO PRN (16:13)
[2023-12-19] MEDS ORDERED: POLYETHYLENE GLYCOL (HEALTHYLAX) 3350 17 GM PACKET PO PRN (16:15)
[2023-12-19] MEDS ORDERED: NALOXONE HCL 0.4 MG/ML VIAL IM PRN (16:15)
[2023-12-19] MEDS ORDERED: LOPERAMIDE HCL 2 MG CAPSULE PO PRN (16:15)
[2023-12-19] MEDS ORDERED: IBUPROFEN 400 MG TABLET (FP) PO PRN (16:15)
[2023-12-19] MEDS ORDERED: ACETAMINOPHEN 325 MG TABLET (FP) PO PRN (16:15)
[2023-12-19] MEDS ORDERED: BENZOCAINE/MENTHOL (CHLORASEPTIC ) LOZENGE MM PRN (16:15)
[2023-12-19] MEDS ORDERED: NALOXONE HCL (KLOXXADO) 8 MG SPRAY NS PRN (16:15)
[2023-12-19] MEDS ORDERED: P-EPHED 60MG/TRIPROLIDI 2.5MG TABLET PO PRN (16:15)
[2023-12-19] MEDS ORDERED: guaiFENesin 600 MG TABLET.ER (FP) PO PRN (16:15)
[2023-12-19] MEDS ORDERED: MAGNESIUM HYDROX 2400MG/30ML ORAL SUSPENSION 30 ML CUP PO PRN (16:15)
[2023-12-19] MEDS ORDERED: BENZONATATE 200 MG CAPSULE PO PRN (16:15)
[2023-12-19] MEDS ORDERED: methaDONE HCL 10 MG TABLET (FOR DETOX USE ONLY) ONE (17:29)
[2023-12-19] MEDS: methaDONE HCL 10 MG TABLET (FOR DETOX USE ONLY) PO ONE (17:34)
[2023-12-19] MEDS: diazePAM 5 MG TABLET PO PRN (18:21)
[2023-12-19] MEDS: NICOTINE POLACRILEX 2 MG LOZENGE BC PRN (18:22)
[2023-12-19] MEDS: NICOTINE POLACRILEX 2 MG GUM BUC PRN (18:24)
[2023-12-19] MEDS: THIAMINE HCL 100 MG TABLET (FP) PO SCH (22:17)
[2023-12-19] MEDS: MELATONIN 5 MG TABLETS PO SCH (22:17)
[2023-12-20] MEDS: PRENATAL VITAMINS W/ FOLIC ACID TABLET (FP) PO SCH (09:24)
[2023-12-20] MEDS: BISMUTH SUBSALICYLATE 524 MG/30 ML PO PRN (09:36)
[2023-12-20] MEDS: FLU VACCINE (FLULAVAL) PF 60 MCG/0.5 ML SYRINGE 2023-2024 IM ONE (11:41)
[2023-12-20] MEDS: QUEtiapine FUMARATE 100 MG TABLET (FP) PO SCH (22:02)
[2023-12-20] MEDS: traZODone HCL 50 MG TABLET (FP) PO SCH (22:02)
[2023-12-21] MEDS: methaDONE HCL 10 MG TABLET (FOR DETOX USE ONLY) PO ONE (10:12)
[2023-12-22] MEDS: METHOCARBAMOL 500 MG TABLET PO PRN (10:09)
[2023-12-22 13:12] LABS: HEMATOCRIT 31.6 % (35.4-49); HEMOGLOBIN 10.6 GM/dL (11.7-16.9); MCHC 33.5 g/dl (32.0-35.9); MEAN CELL VOLUME 92.5 fl (80-96); PLATELET COUNT 272 10^3/uL (134-434); RBC 3.42 M/mm3 (4.00-5.60); RDW 12.5 % (11.9-15.9); WHITE BLOOD COUNT 7.6 K/mm3 (4.0-10.0)
[2023-12-22 13:25] LABS: POTASSIUM 4.3 mmol/L (3.5-5.1)
[2023-12-22 13:27] LABS: CALCIUM 9.3 mg/dL (8.5-10.1)
[2023-12-22 13:28] LABS: BLOOD UREA NITROGEN 12.1 mg/dL (7-18)
[2023-12-22 13:31] LABS: CREATININE 0.8 mg/dL (0.55-1.3)
[2023-12-22 13:33] LABS: BILIRUBIN,TOTAL 0.3 mg/dL (0.2-1)
[2023-12-22] MEDS: DICYCLOMINE HCL 10 MG CAPSULE PO PRN (17:51)
[2023-12-22] MEDS: ONDANSETRON *ODT* 4 MG TABLET SL PRN (21:21)
[2023-12-23] MEDS: TRIMETHOBENZAMIDE HCL 200MG/2ML INJ IM ONE (00:38)
[2023-12-23] MEDS: MAG HYDROX/AL HYDROX/SIMETH 30 ML UNIT-DOSE CUP PO PRN (06:52)
[2023-12-23] MEDS: IBUPROFEN 600 MG TABLET (FP) PO PRN (06:54)
[2023-12-23] MEDS: methaDONE HCL 10 MG TABLET (FOR DETOX USE ONLY) PO ONE (10:22)
[2023-12-23] MEDS: FAMOTIDINE 20 MG TABLET PO SCH (17:49)
[2023-12-24 09:57] VITALS: BP 139/76; PULSE 92; RESP 16; TEMP 96.9
== END 2023-12-24 10:36 | disposition home or self-care (01) | DRG 773 ==
LOC: YASAS 13:24 → Y6N 17:11
PROVIDERS: ADMIT Allergy & Immunology; ATTEND Surgery
PROC: HZ2ZZZZ Detoxification Services for Substance Abuse Treatment (ICD-10-PCS; principal; 2023-12-19)
DX: F11.23 Opioid dependence with withdrawal (principal); F14.20 Cocaine dependence, uncomplicated; F16.20 Hallucinogen dependence, uncomplicated; F12.20 Cannabis dependence, uncomplicated; F17.210 Nicotine dependence, cigarettes, uncomplicated; F25.1 Schizoaffective disorder, depressive type; F19.24 Other psychoactive substance dependence with psychoactive substance-induced mood disorder; G47.00 Insomnia, unspecified; K21.9 Gastro-esophageal reflux disease without esophagitis; Z88.8 Allergy status to other drugs, medicaments and biological substances
CPT/HCPCS: 36415; 80053; 80305; 85027; 86780; 87635; 87811; 90686; G0008; Q0162

== ENCOUNTER 2024-01-31 12:43 | Inpatient (IN) | payer OTHER ==
[2024-01-31 14:10] VITALS: BMI 24.6
[2024-01-31] MEDS ORDERED: METHOCARBAMOL 500 MG TABLET PO PRN (15:42)
[2024-01-31] MEDS ORDERED: BENZOCAINE/MENTHOL (CHLORASEPTIC ) LOZENGE MM PRN (15:42)
[2024-01-31] MEDS ORDERED: IBUPROFEN 400 MG TABLET (FP) PO PRN (15:42)
[2024-01-31] MEDS ORDERED: IBUPROFEN 600 MG TABLET (FP) PO PRN (15:42)
[2024-01-31] MEDS ORDERED: hydrOXYzine PAMOATE 25 MG CAPSULE (FP) PO PRN (15:42)
[2024-01-31] MEDS ORDERED: MAG HYDROX/AL HYDROX/SIMETH 30 ML UNIT-DOSE CUP PO PRN (15:42)
[2024-01-31] MEDS ORDERED: LORazepam 1 MG TABLET PO PRN (15:42)
[2024-01-31] MEDS ORDERED: DICYCLOMINE HCL 10 MG CAPSULE PO PRN (15:42)
[2024-01-31] MEDS ORDERED: BISMUTH SUBSALICYLATE 524 MG/30 ML PO PRN (15:42)
[2024-01-31] MEDS ORDERED: guaiFENesin 600 MG TABLET.ER (FP) PO PRN (15:42)
[2024-01-31] MEDS ORDERED: NALOXONE HCL 0.4 MG/ML VIAL IM PRN (15:42)
[2024-01-31] MEDS ORDERED: NALOXONE HCL (KLOXXADO) 8 MG SPRAY NS PRN (15:42)
[2024-01-31] MEDS ORDERED: ACETAMINOPHEN 325 MG TABLET (FP) PO PRN (15:42)
[2024-01-31] MEDS ORDERED: BENZONATATE 200 MG CAPSULE PO PRN (15:42)
[2024-01-31] MEDS ORDERED: traZODone HCL 50 MG TABLET (FP) PO PRN (15:42)
[2024-01-31] MEDS ORDERED: MAGNESIUM HYDROX 2400MG/30ML ORAL SUSPENSION 30 ML CUP PO PRN (15:42)
[2024-01-31] MEDS ORDERED: LOPERAMIDE HCL 2 MG CAPSULE PO PRN (15:42)
[2024-01-31] MEDS ORDERED: POLYETHYLENE GLYCOL (HEALTHYLAX) 3350 17 GM PACKET PO PRN (15:42)
[2024-01-31] MEDS: NICOTINE POLACRILEX 4 MG GUM BUC PRN (18:05)
[2024-01-31] MEDS: LORazepam 2 MG TABLET PO SCH ×2 (18:36→23:16)
[2024-01-31] MEDS: cloNIDine HCL 0.1 MG TABLET PO SCH (18:36)
[2024-01-31] MEDS: MELATONIN 5 MG TABLETS PO SCH (23:12)
[2024-01-31] MEDS: THIAMINE HCL 100 MG TABLET (FP) PO SCH (23:13)
[2024-02-01] MEDS ORDERED: methaDONE HCL 40 MG DISPERSABLE TABLET PO ONE (06:00)
[2024-02-01] MEDS ORDERED: methaDONE 40 MG, methaDONE 30 MG PO ONE ×2 (06:00→08:00)
[2024-02-01] MEDS ORDERED: methaDONE 40 MG, methaDONE 20 MG PO ONE (06:00)
[2024-02-01] MEDS: methaDONE 40 MG, methaDONE 20 MG PO ONE (07:36)
[2024-02-01] MEDS: NICOTINE POLACRILEX 2 MG GUM BUC PRN (08:37)
[2024-02-01] MEDS: PRENATAL VITAMINS W/ FOLIC ACID TABLET (FP) PO SCH (10:28)
[2024-02-01] MEDS: NICOTINE POLACRILEX 4 MG LOZENGE BC PRN (18:00)
[2024-02-01] MEDS: traZODone HCL 50 MG TABLET (FP) PO SCH (22:12)
[2024-02-01] MEDS: QUEtiapine FUMARATE 100 MG TABLET (FP) PO SCH (22:12)
[2024-02-02] MEDS ORDERED: cloNIDine HCL 0.1 MG TABLET PO PRN
[2024-02-02] MEDS ORDERED: LORazepam 1 MG TABLET PO SCH (05:00)
[2024-02-02] MEDS: LORazepam 1 MG TABLET PO SCH (06:00)
[2024-02-02] MEDS: methaDONE 40 MG, methaDONE 30 MG PO ONE (06:09)
[2024-02-03] MEDS ORDERED: LORazepam 0.5 MG TABLET PO PRN
[2024-02-03] MEDS: LORazepam 0.5 MG TABLET PO SCH (05:54)
[2024-02-03] MEDS: methaDONE HCL 40 MG DISPERSABLE TABLET PO ONE (06:15)
[2024-02-04] MEDS: methaDONE 80 MG, methaDONE 10 MG PO ONE (06:34)
[2024-02-04] MEDS: LORazepam 0.5 MG TABLET PO ONE (06:34)
[2024-02-04] MEDS ORDERED: NICOTINE POLACRILEX 4 MG GUM BUC PRN (08:39)
[2024-02-04 09:18] VITALS: BP 131/83; PULSE 88; RESP 17; TEMP 97.7
[2024-02-04] MEDS: ONDANSETRON *ODT* 4 MG TABLET SL PRN (10:09)
== END 2024-02-04 11:24 | disposition home or self-care (01) | DRG 773 ==
LOC: YASAS 12:43 → Y3N 16:52
PROVIDERS: ADMIT Allergy & Immunology; ATTEND Surgery
PROC: HZ2ZZZZ Detoxification Services for Substance Abuse Treatment (ICD-10-PCS; principal; 2024-01-31)
DX: F11.23 Opioid dependence with withdrawal (principal); F10.230 Alcohol dependence with withdrawal, uncomplicated; F14.20 Cocaine dependence, uncomplicated; F12.20 Cannabis dependence, uncomplicated; F17.210 Nicotine dependence, cigarettes, uncomplicated; F25.1 Schizoaffective disorder, depressive type; K21.9 Gastro-esophageal reflux disease without esophagitis; Z88.8 Allergy status to other drugs, medicaments and biological substances
CPT/HCPCS: 93005; 93010; Q0162

== ENCOUNTER 2024-04-06 19:41 | Inpatient (IN) | payer OTHER ==
[2024-04-06 20:13] VITALS: BMI 20.5
[2024-04-06] MEDS ORDERED: IBUPROFEN 400 MG TABLET (FP) PO PRN (20:47)
[2024-04-06] MEDS ORDERED: BENZONATATE 200 MG CAPSULE PO PRN (20:47)
[2024-04-06] MEDS ORDERED: BENZOCAINE/MENTHOL (CHLORASEPTIC ) LOZENGE MM PRN (20:47)
[2024-04-06] MEDS ORDERED: NALOXONE HCL 0.4 MG/ML VIAL IM PRN (20:47)
[2024-04-06] MEDS ORDERED: NALOXONE (NARCAN) HCL 4 MG/0.1 ML SPRAY NS PRN (20:47)
[2024-04-06] MEDS ORDERED: BISMUTH SUBSALICYLATE 524 MG/30 ML PO PRN (20:47)
[2024-04-06] MEDS ORDERED: MAGNESIUM HYDROX 2400MG/30ML ORAL SUSPENSION 30 ML CUP PO PRN (20:47)
[2024-04-06] MEDS ORDERED: POLYETHYLENE GLYCOL (HEALTHYLAX) 3350 17 GM PACKET PO PRN (20:47)
[2024-04-06] MEDS ORDERED: guaiFENesin 600 MG TABLET.ER (FP) PO PRN (20:47)
[2024-04-06] MEDS ORDERED: DICYCLOMINE HCL 10 MG CAPSULE PO PRN (20:47)
[2024-04-06] MEDS: THIAMINE 100 MG TABLET PO SCH (22:49)
[2024-04-06] MEDS: MELATONIN 5 MG TABLETS PO SCH (22:49)
[2024-04-06] MEDS: IBUPROFEN 600 MG TABLET (FP) PO PRN (22:50)
[2024-04-07] MEDS ORDERED: chlordiazePOXIDE HCL 25 MG CAPSULE PO PRN (09:21)
[2024-04-07] MEDS ORDERED: methaDONE HCL 10 MG TABLET PO SCH (09:30)
[2024-04-07] MEDS: NICOTINE 21 MG/24 HOURS TOPICAL PATCH TD SCH (10:40)
[2024-04-07] MEDS: FAMOTIDINE 20 MG TABLET PO SCH (10:41)
[2024-04-07] MEDS: PRENATAL VITAMINS W/ FOLIC ACID TABLET (FP) PO SCH (10:41)
[2024-04-07] MEDS: chlordiazePOXIDE HCL 25 MG CAPSULE PO SCH (10:45)
[2024-04-07] MEDS: methaDONE 80 MG, methaDONE 10 MG PO SCH (10:52)
[2024-04-07] MEDS: LOPERAMIDE HCL 2 MG CAPSULE PO PRN (10:54)
[2024-04-07] MEDS: NICOTINE POLACRILEX 4 MG GUM BUC PRN (10:55)
[2024-04-07 12:06] LABS: CHLORIDE 107 mmol/L (98-107); POTASSIUM 3.9 mmol/L (3.5-5.1); SODIUM 140 mmol/L (136-145)
[2024-04-07 12:08] LABS: ALBUMIN 3.1 g/dl (3.4-5.0); ANION GAP 7 mmol/L (4-13); BLOOD UREA NITROGEN 19.5 mg/dL (7-18); CALCIUM 8.7 mg/dL (8.5-10.1); CO2 26 mmol/L (21-32)
[2024-04-07 12:09] LABS: GLUCOSE,RANDOM 99 mg/dL (74-106)
[2024-04-07 12:11] LABS: CREATININE 1.3 mg/dL (0.55-1.3); SGOT/AST 17 U/L (15-37)
[2024-04-07 12:12] LABS: SGPT/ALT 22 U/L (13-61)
[2024-04-07 12:13] LABS: BILIRUBIN,TOTAL 0.3 mg/dL (0.2-1); HEMATOCRIT 24.5 % (35.4-49); HEMOGLOBIN 8.4 GM/dL (11.7-16.9); MCH 31.5 pg (25.7-33.7); MCHC 34.4 g/dl (32.0-35.9); MEAN CELL VOLUME 91.6 fl (80-96); MEAN PLT VOLUME 8.6 fl (7.5-11.1); PLATELET COUNT 497 10^3/uL (134-434); RBC 2.67 M/mm3 (4.00-5.60); RDW 13.3 % (11.9-15.9); TOT PROT 6.5 g/dl (6.4-8.2); WHITE BLOOD COUNT 5.1 K/mm3 (4.0-10.0)
[2024-04-07 12:14] LABS: ALK PHOS 85 U/L (45-117)
[2024-04-07] MEDS: QUEtiapine FUMARATE 100 MG TABLET (FP) PO SCH (22:28)
[2024-04-08] MEDS: ONDANSETRON *ODT* 4 MG TABLET SL PRN (09:09)
[2024-04-08] MEDS: MAG HYDROX/AL HYDROX/SIMETH 30 ML UNIT-DOSE CUP PO PRN (09:13)
[2024-04-08] MEDS: TRIMETHOBENZAMIDE HCL 200MG/2ML INJ IM PRN (17:48)
[2024-04-09] MEDS: TRIMETHOBENZAMIDE HCL 200MG/2ML INJ IM ONE (06:52)
[2024-04-09] MEDS: chlordiazePOXIDE HCL 25 MG CAPSULE PO SCH (06:58)
[2024-04-09] MEDS: SUCRALFATE 1 GM TABLET (FP) PO SCH (08:07)
[2024-04-09] MEDS: FAMOTIDINE 20 MG TABLET PO SCH (10:14)
[2024-04-09 11:51] LABS: IRON SERUM 42 ug/dL (50-175)
[2024-04-09 11:51] LABS: HEMATOCRIT 28.4 % (35.4-49); HEMOGLOBIN 9.6 GM/dL (11.7-16.9); MCH 31.4 pg (25.7-33.7); MCHC 33.8 g/dl (32.0-35.9); MEAN CELL VOLUME 93.2 fl (80-96); MEAN PLT VOLUME 8.9 fl (7.5-11.1); PLATELET COUNT 550 10^3/uL (134-434); RBC 3.05 M/mm3 (4.00-5.60); RDW 13.7 % (11.9-15.9); RETICULOCYTES 2.52 % (0.5-1.5); WHITE BLOOD COUNT 8.1 K/mm3 (4.0-10.0)
[2024-04-09 11:52] LABS: TOTAL IRON BINDING CAPACITY 258 ug/dL (250-450)
[2024-04-09] MEDS: FERROUS SO4 325 MG TABLET (FP) PO SCH (17:18)
[2024-04-10] MEDS ORDERED: chlordiazePOXIDE HCL 10 MG CAPSULE PO PRN
[2024-04-10] MEDS: chlordiazePOXIDE HCL 10 MG CAPSULE PO SCH (05:44)
[2024-04-10] MEDS: ACETAMINOPHEN 325 MG TABLET (FP) PO PRN (10:20)
[2024-04-10] MEDS: BACITRACIN 0.9 GM PACKET TP ONE (20:15)
[2024-04-11] MEDS: chlordiazePOXIDE HCL 10 MG CAPSULE PO SCH (05:49)
[2024-04-11] MEDS: hydrOXYzine PAMOATE 25 MG CAPSULE (FP) PO PRN (22:41)
[2024-04-12] MEDS: chlordiazePOXIDE HCL 10 MG CAPSULE PO ONE (05:56)
[2024-04-12 06:43] VITALS: RESP 16
[2024-04-12 08:54] VITALS: BP 113/68; PULSE 90; TEMP 97.8
== END 2024-04-12 10:50 | disposition home or self-care (01) | DRG 773 ==
LOC: YASAS 19:41 → Y6N 21:42
PROVIDERS: ADMIT Allergy & Immunology; ATTEND Surgery
PROC: HZ2ZZZZ Detoxification Services for Substance Abuse Treatment (ICD-10-PCS; principal; 2024-04-06)
DX: F10.230 Alcohol dependence with withdrawal, uncomplicated (principal); F11.20 Opioid dependence, uncomplicated; F14.20 Cocaine dependence, uncomplicated; F17.210 Nicotine dependence, cigarettes, uncomplicated; F25.1 Schizoaffective disorder, depressive type; F19.282 Other psychoactive substance dependence with psychoactive substance-induced sleep disorder; F19.24 Other psychoactive substance dependence with psychoactive substance-induced mood disorder; F41.9 Anxiety disorder, unspecified; D50.9 Iron deficiency anemia, unspecified; K21.9 Gastro-esophageal reflux disease without esophagitis; Z98.890 Other specified postprocedural states
CPT/HCPCS: 36415; 80053; 80305; 80307; 82607; 82728; 82747; 83540; 83550; 85014; 85027; 85045; 86780; Q0162

== ENCOUNTER 2024-05-21 15:15 | Inpatient (IN) | payer OTHER ==
[2024-05-21 17:16] VITALS: BMI 21.4
[2024-05-21] MEDS ORDERED: BENZOCAINE/MENTHOL (CHLORASEPTIC ) LOZENGE MM PRN (18:00)
[2024-05-21] MEDS ORDERED: guaiFENesin 600 MG TABLET.ER (FP) PO PRN (18:00)
[2024-05-21] MEDS ORDERED: P-EPHED 60MG/TRIPROLIDI 2.5MG TABLET PO PRN (18:00)
[2024-05-21] MEDS ORDERED: BISMUTH SUBSALICYLATE 524 MG/30 ML PO PRN (18:00)
[2024-05-21] MEDS ORDERED: NALOXONE HCL 0.4 MG/ML VIAL IM PRN (18:00)
[2024-05-21] MEDS ORDERED: LOPERAMIDE HCL 2 MG CAPSULE PO PRN (18:00)
[2024-05-21] MEDS ORDERED: MAG HYDROX/AL HYDROX/SIMETH 30 ML UNIT-DOSE CUP PO PRN (18:00)
[2024-05-21] MEDS ORDERED: ONDANSETRON *ODT* 4 MG TABLET SL PRN (18:00)
[2024-05-21] MEDS ORDERED: DICYCLOMINE HCL 10 MG CAPSULE PO PRN (18:00)
[2024-05-21] MEDS ORDERED: BENZONATATE 200 MG CAPSULE PO PRN (18:00)
[2024-05-21] MEDS ORDERED: NALOXONE (NARCAN) HCL 4 MG/0.1 ML SPRAY NS PRN (18:00)
[2024-05-21] MEDS ORDERED: POLYETHYLENE GLYCOL (HEALTHYLAX) 3350 17 GM PACKET PO PRN (18:00)
[2024-05-21] MEDS: NICOTINE POLACRILEX 2 MG GUM BUC PRN (18:51)
[2024-05-21] MEDS: MELATONIN 5 MG TABLETS PO SCH (22:42)
[2024-05-21] MEDS: THIAMINE 100 MG TABLET PO SCH (22:42)
[2024-05-22] MEDS ORDERED: methaDONE HCL 10 MG TABLET PO ONE (08:33)
[2024-05-22] MEDS: methaDONE 80 MG, methaDONE 20 MG PO ONE (08:58)
[2024-05-22] MEDS: PRENATAL VITAMINS W/ FOLIC ACID TABLET (FP) PO SCH (08:59)
[2024-05-22] MEDS: LORazepam 1 MG TABLET PO SCH (10:57)
[2024-05-22 11:37] LABS: HEMATOCRIT 33.8 % (35.4-49); HEMOGLOBIN 11.6 GM/dL (11.7-16.9); MCH 31.1 pg (25.7-33.7); MCHC 34.4 g/dl (32.0-35.9); MEAN CELL VOLUME 90.4 fl (80-96); MEAN PLT VOLUME 9.9 fl (7.5-11.1); PLATELET COUNT 184 10^3/uL (134-434); RBC 3.73 M/mm3 (4.00-5.60); RDW 13.1 % (11.9-15.9); WHITE BLOOD COUNT 4.8 K/mm3 (4.0-10.0)
[2024-05-22] MEDS: FAMOTIDINE 20 MG TABLET PO SCH (11:37)
[2024-05-22 11:38] LABS: POTASSIUM 4.2 mmol/L (3.5-5.1)
[2024-05-22 11:54] LABS: ALBUMIN 3.4 g/dl (3.4-5.0); BLOOD UREA NITROGEN 13.3 mg/dL (7-18); CALCIUM 8.9 mg/dL (8.5-10.1)
[2024-05-22 11:58] LABS: CREATININE 0.8 mg/dL (0.55-1.3)
[2024-05-22 11:59] LABS: BILIRUBIN,TOTAL 0.6 mg/dL (0.2-1); TOT PROT 6.7 g/dl (6.4-8.2)
[2024-05-22] MEDS: QUEtiapine FUMARATE 100 MG TABLET (FP) PO SCH (22:46)
[2024-05-23] MEDS: methaDONE 80 MG, methaDONE 20 MG PO SCH (05:43)
[2024-05-23] MEDS ORDERED: methaDONE HCL 10 MG TABLET PO SCH (06:00)
[2024-05-24] MEDS: LORazepam 1 MG TABLET PO SCH (05:48)
[2024-05-24] MEDS: NICOTINE POLACRILEX 2 MG LOZENGE BC PRN (08:29)
[2024-05-24] MEDS: MAGNESIUM HYDROX 2400MG/30ML ORAL SUSPENSION 30 ML CUP PO PRN (10:05)
[2024-05-24] MEDS: LORazepam 1 MG TABLET PO PRN (17:08)
[2024-05-25] MEDS ORDERED: LORazepam 0.5 MG TABLET PO PRN
[2024-05-25] MEDS: LORazepam 0.5 MG TABLET PO SCH (05:48)
[2024-05-26] MEDS: LORazepam 0.5 MG TABLET PO SCH (05:40)
[2024-05-26] MEDS: METHOCARBAMOL 500 MG TABLET PO PRN (11:55)
[2024-05-26] MEDS: ACETAMINOPHEN 325 MG TABLET (FP) PO PRN (11:55)
[2024-05-27] MEDS: LORazepam 0.5 MG TABLET PO ONE (05:32)
[2024-05-27 09:14] VITALS: BP 133/82; PULSE 79; RESP 18; TEMP 98
== END 2024-05-27 09:30 | disposition home or self-care (01) | DRG 774 ==
LOC: YASAS 15:15 → Y6N 18:03
PROVIDERS: ADMIT Allergy & Immunology; ATTEND Surgery
PROC: HZ2ZZZZ Detoxification Services for Substance Abuse Treatment (ICD-10-PCS; principal; 2024-05-21)
DX: F10.230 Alcohol dependence with withdrawal, uncomplicated (principal); F10.220 Alcohol dependence with intoxication, uncomplicated; F14.20 Cocaine dependence, uncomplicated; F12.20 Cannabis dependence, uncomplicated; F17.210 Nicotine dependence, cigarettes, uncomplicated; F25.1 Schizoaffective disorder, depressive type; F19.982 Other psychoactive substance use, unspecified with psychoactive substance-induced sleep disorder; F19.94 Other psychoactive substance use, unspecified with psychoactive substance-induced mood disorder; K21.9 Gastro-esophageal reflux disease without esophagitis; G47.00 Insomnia, unspecified; Z88.8 Allergy status to other drugs, medicaments and biological substances; Z95.1 Presence of aortocoronary bypass graft; Z56.0 Unemployment, unspecified
CPT/HCPCS: 36415; 80053; 80305; 85027; 86780

== ENCOUNTER 2024-08-22 17:59 | Inpatient (IN) | payer OTHER ==
[2024-08-22 19:01] VITALS: BMI 22.8
[2024-08-22] MEDS ORDERED: BENZONATATE 200 MG CAPSULE PO PRN (20:39)
[2024-08-22] MEDS ORDERED: BENZOCAINE/MENTHOL (CHLORASEPTIC ) LOZENGE MM PRN (20:39)
[2024-08-22] MEDS ORDERED: ONDANSETRON *ODT* 4 MG TABLET SL PRN (20:39)
[2024-08-22] MEDS ORDERED: DICYCLOMINE HCL 10 MG CAPSULE PO PRN (20:39)
[2024-08-22] MEDS ORDERED: guaiFENesin 600 MG TABLET.ER (FP) PO PRN (20:39)
[2024-08-22] MEDS ORDERED: ACETAMINOPHEN 325 MG TABLET (FP) PO PRN (20:39)
[2024-08-22] MEDS ORDERED: BISMUTH SUBSALICYLATE 524 MG/30 ML PO PRN (20:39)
[2024-08-22] MEDS ORDERED: IBUPROFEN 400 MG TABLET (FP) PO PRN (20:39)
[2024-08-22] MEDS ORDERED: MAG HYDROX/AL HYDROX/SIMETH 30 ML UNIT-DOSE CUP PO PRN (20:39)
[2024-08-22] MEDS ORDERED: POLYETHYLENE GLYCOL (HEALTHYLAX) 3350 17 GM PACKET PO PRN (20:39)
[2024-08-22] MEDS ORDERED: LOPERAMIDE HCL 2 MG CAPSULE PO PRN (20:39)
[2024-08-22] MEDS ORDERED: MAGNESIUM HYDROX 2400MG/30ML ORAL SUSPENSION 30 ML CUP PO PRN (20:39)
[2024-08-22] MEDS ORDERED: IBUPROFEN 600 MG TABLET (FP) PO PRN (20:39)
[2024-08-22] MEDS ORDERED: NALOXONE (NARCAN) HCL 4 MG/0.1 ML SPRAY NS PRN (20:39)
[2024-08-22] MEDS ORDERED: P-EPHED 60MG/TRIPROLIDI 2.5MG TABLET PO PRN (20:41)
[2024-08-22] MEDS: MELATONIN 5 MG TABLETS PO SCH (23:15)
[2024-08-22] MEDS: THIAMINE 100 MG TABLET PO SCH (23:25)
[2024-08-23] MEDS: NICOTINE POLACRILEX 4 MG GUM BUC PRN (10:15)
[2024-08-23] MEDS: PRENATAL VITAMINS W/ FOLIC ACID TABLET (FP) PO SCH (10:15)
[2024-08-23] MEDS: NICOTINE 21 MG/24 HOURS TOPICAL PATCH TD SCH (10:15)
[2024-08-23 10:35] LABS: MCH 31.8 pg (25.7-33.7); MCHC 34.4 g/dl (32.0-35.9); MEAN CELL VOLUME 92.5 fl (80-96); MEAN PLT VOLUME 10.3 fl (7.5-11.1); PLATELET COUNT 242 10^3/uL (134-434); RBC 3.45 M/mm3 (4.00-5.60); RDW 12.5 % (11.9-15.9); WHITE BLOOD COUNT 4.3 K/mm3 (4.0-10.0)
[2024-08-23 10:56] LABS: CHLORIDE 110 mmol/L (98-107); POTASSIUM 4.1 mmol/L (3.5-5.1); SODIUM 141 mmol/L (136-145)
[2024-08-23 11:03] LABS: ALBUMIN 3.4 g/dl (3.4-5.0); CALCIUM 8.7 mg/dL (8.5-10.1)
[2024-08-23 11:04] LABS: ANION GAP 4 mmol/L (4-13); CO2 27 mmol/L (21-32); GLUCOSE,RANDOM 79 mg/dL (74-106)
[2024-08-23 11:06] LABS: CREATININE 0.9 mg/dL (0.55-1.3); SGOT/AST 22 U/L (15-37); SGPT/ALT 21 U/L (13-61)
[2024-08-23 11:08] LABS: BILIRUBIN,TOTAL 0.6 mg/dL (0.2-1); TOT PROT 6.3 g/dl (6.4-8.2)
[2024-08-23 11:09] LABS: ALK PHOS 81 U/L (45-117)
[2024-08-23] MEDS: methaDONE 80 MG, methaDONE 10 MG PO ONE (12:31)
[2024-08-23] MEDS: QUEtiapine FUMARATE 100 MG TABLET (FP) PO SCH (22:13)
[2024-08-24] MEDS: methaDONE 80 MG, methaDONE 10 MG PO ONE (09:50)
[2024-08-24] MEDS: hydrOXYzine PAMOATE 25 MG CAPSULE (FP) PO PRN (09:50)
[2024-08-24 21:07] VITALS: RESP 16
[2024-08-25 08:51] VITALS: BP 143/84; PULSE 62; TEMP 97.9
[2024-08-25] MEDS ORDERED: methaDONE HCL 10 MG TABLET PO ONE (10:35)
[2024-08-25] MEDS: NALOXONE (NYS OPIOID OVERDOSE PROGRAM) 4 MG/0.1 ML SPRAY NS PRN (11:00)
[2024-08-25] MEDS: methaDONE 80 MG, methaDONE 10 MG PO ONE (11:37)
== END 2024-08-25 11:10 | disposition home or self-care (01) | DRG 773 ==
LOC: YASAS 17:59 → Y6N 22:15
PROVIDERS: ADMIT Allergy & Immunology; ATTEND Surgery
PROC: HZ2ZZZZ Detoxification Services for Substance Abuse Treatment (ICD-10-PCS; principal; 2024-08-22)
DX: F11.20 Opioid dependence, uncomplicated (principal); F14.20 Cocaine dependence, uncomplicated; F10.20 Alcohol dependence, uncomplicated; F12.20 Cannabis dependence, uncomplicated; F17.210 Nicotine dependence, cigarettes, uncomplicated; F19.282 Other psychoactive substance dependence with psychoactive substance-induced sleep disorder; F25.9 Schizoaffective disorder, unspecified; K21.9 Gastro-esophageal reflux disease without esophagitis
CPT/HCPCS: 36415; 80053; 80305; 80307; 85027; 86780

== ENCOUNTER 2024-09-23 12:38 | Inpatient (IN) | payer OTHER ==
[2024-09-23 13:55] VITALS: BMI 23.1
[2024-09-23] MEDS ORDERED: MAGNESIUM HYDROX 2400MG/30ML ORAL SUSPENSION 30 ML CUP PO PRN (14:05)
[2024-09-23] MEDS ORDERED: BENZOCAINE/MENTHOL (CHLORASEPTIC ) LOZENGE MM PRN (14:05)
[2024-09-23] MEDS ORDERED: diazePAM 5 MG TABLET PO PRN (14:05)
[2024-09-23] MEDS ORDERED: DICYCLOMINE HCL 10 MG CAPSULE PO PRN (14:05)
[2024-09-23] MEDS ORDERED: guaiFENesin 600 MG TABLET.ER (FP) PO PRN (14:05)
[2024-09-23] MEDS ORDERED: BISMUTH SUBSALICYLATE 262 MG/15 ML BTL PO PRN (14:05)
[2024-09-23] MEDS ORDERED: BENZONATATE 200 MG CAPSULE PO PRN (14:05)
[2024-09-23] MEDS ORDERED: IBUPROFEN 400 MG TABLET (FP) PO PRN (14:05)
[2024-09-23] MEDS ORDERED: NALOXONE (NARCAN) HCL 4 MG/0.1 ML SPRAY NS PRN (14:05)
[2024-09-23] MEDS ORDERED: MAG HYDROX/AL HYDROX/SIMETH 30 ML UNIT-DOSE CUP PO PRN (14:05)
[2024-09-23] MEDS ORDERED: LOPERAMIDE HCL 2 MG CAPSULE PO PRN (14:05)
[2024-09-23] MEDS ORDERED: ACETAMINOPHEN 325 MG TABLET (FP) PO PRN (14:05)
[2024-09-23] MEDS ORDERED: POLYETHYLENE GLYCOL (HEALTHYLAX) 3350 17 GM PACKET PO PRN (14:05)
[2024-09-23] MEDS ORDERED: IBUPROFEN 600 MG TABLET (FP) PO PRN (14:05)
[2024-09-23] MEDS ORDERED: ONDANSETRON *ODT* 4 MG TABLET SL PRN (14:05)
[2024-09-23] MEDS: cloNIDine HCL 0.1 MG TABLET PO SCH (18:46)
[2024-09-23] MEDS: NICOTINE POLACRILEX 4 MG LOZENGE BC PRN (21:12)
[2024-09-23] MEDS ORDERED: QUEtiapine FUMARATE 100 MG TABLET (FP) PO SCH (22:00)
[2024-09-23] MEDS: QUEtiapine FUMARATE 100 MG TABLET (FP) PO ONE (22:28)
[2024-09-23] MEDS: THIAMINE 100 MG TABLET PO SCH (22:28)
[2024-09-23] MEDS: MIRTAZAPINE 15 MG TABLET (FP) PO SCH (22:30)
[2024-09-23] MEDS: diazePAM 5 MG TABLET PO SCH (22:30)
[2024-09-23] MEDS: FAMOTIDINE 20 MG TABLET PO SCH (22:30)
[2024-09-23] MEDS: MELATONIN 5 MG TABLETS PO SCH (22:32)
[2024-09-24] MEDS ORDERED: METHADONE 1 MG/ML PO SCH (06:00)
[2024-09-24] MEDS: NICOTINE POLACRILEX 4 MG GUM BUC PRN (08:44)
[2024-09-24] MEDS: methaDONE 80 MG, methaDONE 10 MG PO SCH (08:44)
[2024-09-24] MEDS: NICOTINE 21 MG/24 HOURS TOPICAL PATCH TD SCH (10:40)
[2024-09-24] MEDS: methaDONE HCL 10 MG TABLET PO ONE (10:40)
[2024-09-24] MEDS: PRENATAL VITAMINS W/ FOLIC ACID TABLET (FP) PO SCH (10:42)
[2024-09-24 12:48] LABS: HEMATOCRIT 34.6 % (35.4-49); HEMOGLOBIN 11.6 GM/dL (11.7-16.9); MCH 31.6 pg (25.7-33.7); MCHC 33.7 g/dl (32.0-35.9); MEAN CELL VOLUME 93.7 fl (80-96); MEAN PLT VOLUME 10.4 fl (7.5-11.1); PLATELET COUNT 225 10^3/uL (134-434); RBC 3.69 M/mm3 (4.00-5.60); RDW 12.4 % (11.9-15.9); WHITE BLOOD COUNT 3.7 K/mm3 (4.0-10.0)
[2024-09-24 12:49] LABS: CHLORIDE 109 mmol/L (98-107); POTASSIUM 4.2 mmol/L (3.5-5.1); SODIUM 145 mmol/L (136-145)
[2024-09-24 12:51] LABS: CALCIUM 9.5 mg/dL (8.5-10.1)
[2024-09-24 12:52] LABS: ALBUMIN 3.4 g/dl (3.4-5.0); ANION GAP 8 mmol/L (4-13); BLOOD UREA NITROGEN 14.4 mg/dL (7-18); CO2 28 mmol/L (21-32); GLUCOSE,RANDOM 76 mg/dL (74-106)
[2024-09-24 12:56] LABS: BILIRUBIN,TOTAL 0.4 mg/dL (0.2-1); SGOT/AST 15 U/L (15-37); SGPT/ALT 23 U/L (13-61); TOT PROT 6.3 g/dl (6.4-8.2)
[2024-09-24 12:57] LABS: ALK PHOS 84 U/L (45-117)
[2024-09-25] MEDS ORDERED: cloNIDine HCL 0.1 MG TABLET PO PRN
[2024-09-25] MEDS: diazePAM 5 MG TABLET PO SCH (05:45)
[2024-09-25] MEDS: hydrOXYzine PAMOATE 25 MG CAPSULE (FP) PO PRN (09:16)
[2024-09-25] MEDS: METHOCARBAMOL 500 MG TABLET PO PRN (09:16)
[2024-09-25 22:25] VITALS: RESP 16
[2024-09-26] MEDS: diazePAM 5 MG TABLET PO SCH (06:09)
[2024-09-26 07:11] VITALS: TEMP 97.7
[2024-09-26 09:01] VITALS: BP 151/96; PULSE 69
[2024-09-26] MEDS: methaDONE HCL 10 MG TABLET PO ONE (09:37)
[2024-09-26] MEDS: NALOXONE (NYS OPIOID OVERDOSE PROGRAM) 4 MG/0.1 ML SPRAY NS SCH (10:08)
[2024-09-27] MEDS ORDERED: diazePAM 5 MG TABLET PO ONE (06:00)
[2024-09-28] MEDS ORDERED: methaDONE HCL 10 MG TABLET PO ONE (10:00)
== END 2024-09-26 10:10 | disposition home or self-care (01) | DRG 773 ==
LOC: YASAS 12:38 → Y6N 15:02
PROVIDERS: ADMIT Allergy & Immunology; ATTEND Surgery
PROC: HZ2ZZZZ Detoxification Services for Substance Abuse Treatment (ICD-10-PCS; principal; 2024-09-23)
DX: F10.230 Alcohol dependence with withdrawal, uncomplicated (principal); F11.20 Opioid dependence, uncomplicated; F14.20 Cocaine dependence, uncomplicated; F12.20 Cannabis dependence, uncomplicated; F17.210 Nicotine dependence, cigarettes, uncomplicated; F25.9 Schizoaffective disorder, unspecified; F19.982 Other psychoactive substance use, unspecified with psychoactive substance-induced sleep disorder; K21.9 Gastro-esophageal reflux disease without esophagitis; Z86.69 Personal history of other diseases of the nervous system and sense organs; Z91.51 Personal history of suicidal behavior; Z56.0 Unemployment, unspecified
CPT/HCPCS: 36415; 80053; 80307; 85027; 86780; 93005; 93010

== ENCOUNTER 2024-10-18 10:55 | Inpatient (IN) | payer OTHER ==
[2024-10-18 10:58] VITALS: BMI 30.4
[2024-10-18] MEDS ORDERED: IBUPROFEN 400 MG TABLET (FP) PO PRN (11:07)
[2024-10-18] MEDS ORDERED: MAG HYDROX/AL HYDROX/SIMETH 30 ML UNIT-DOSE CUP PO PRN (11:07)
[2024-10-18] MEDS ORDERED: ACETAMINOPHEN 325 MG TABLET (FP) PO PRN (11:07)
[2024-10-18] MEDS ORDERED: POLYETHYLENE GLYCOL (HEALTHYLAX) 3350 17 GM PACKET PO PRN (11:07)
[2024-10-18] MEDS ORDERED: BENZONATATE 200 MG CAPSULE PO PRN (11:07)
[2024-10-18] MEDS ORDERED: LOPERAMIDE HCL 2 MG CAPSULE PO PRN (11:07)
[2024-10-18] MEDS ORDERED: MAGNESIUM HYDROX 2400MG/30ML ORAL SUSPENSION 30 ML CUP PO PRN (11:07)
[2024-10-18] MEDS ORDERED: NALOXONE (NARCAN) HCL 4 MG/0.1 ML SPRAY NS PRN (11:07)
[2024-10-18] MEDS ORDERED: IBUPROFEN 600 MG TABLET (FP) PO PRN (11:07)
[2024-10-18] MEDS ORDERED: P-EPHED 60MG/TRIPROLIDI 2.5MG TABLET PO PRN (11:07)
[2024-10-18] MEDS ORDERED: ONDANSETRON *ODT* 4 MG TABLET SL PRN (11:07)
[2024-10-18] MEDS ORDERED: NICOTINE POLACRILEX 2 MG LOZENGE BC PRN (11:07)
[2024-10-18] MEDS ORDERED: DICYCLOMINE HCL 10 MG CAPSULE PO PRN (11:07)
[2024-10-18] MEDS ORDERED: BISMUTH SUBSALICYLATE 524 MG/30 ML PO PRN (11:07)
[2024-10-18] MEDS ORDERED: guaiFENesin 600 MG TABLET.ER (FP) PO PRN (11:07)
[2024-10-18] MEDS ORDERED: BENZOCAINE/MENTHOL (CHLORASEPTIC ) LOZENGE MM PRN (11:07)
[2024-10-18] MEDS: NICOTINE POLACRILEX 2 MG GUM BUC PRN (17:27)
[2024-10-18] MEDS: QUEtiapine FUMARATE 100 MG TABLET (FP) PO SCH (22:46)
[2024-10-18] MEDS: THIAMINE 100 MG TABLET PO SCH (22:46)
[2024-10-18] MEDS: MELATONIN 5 MG TABLETS PO SCH (22:46)
[2024-10-19] MEDS: methaDONE 40 MG, methaDONE 10 MG PO SCH (05:54)
[2024-10-19] MEDS ORDERED: methaDONE HCL 40 MG DISPERSABLE TABLET PO SCH (06:00)
[2024-10-19 09:23] LABS: HEMATOCRIT 34.6 % (35.4-49); HEMOGLOBIN 11.9 GM/dL (11.7-16.9); MCH 32.1 pg (25.7-33.7); MCHC 34.4 g/dl (32.0-35.9); MEAN CELL VOLUME 93.3 fl (80-96); MEAN PLT VOLUME 10.5 fl (7.5-11.1); PLATELET COUNT 213 10^3/uL (134-434); POTASSIUM 3.8 mmol/L (3.5-5.1); RBC 3.71 M/mm3 (4.00-5.60); RDW 12.7 % (11.9-15.9); WHITE BLOOD COUNT 6.1 K/mm3 (4.0-10.0)
[2024-10-19 09:28] LABS: ALBUMIN 3.3 g/dl (3.4-5.0); CALCIUM 9.3 mg/dL (8.5-10.1)
[2024-10-19 09:32] LABS: CREATININE 0.9 mg/dL (0.55-1.3)
[2024-10-19 09:33] LABS: BILIRUBIN,TOTAL 0.5 mg/dL (0.2-1); TOT PROT 6.3 g/dl (6.4-8.2)
[2024-10-19] MEDS: PRENATAL VITAMINS W/ FOLIC ACID TABLET (FP) PO SCH (10:29)
[2024-10-20] MEDS: METHOCARBAMOL 500 MG TABLET PO PRN (10:09)
[2024-10-20] MEDS: hydrOXYzine PAMOATE 25 MG CAPSULE (FP) PO PRN (10:09)
[2024-10-20] MEDS ORDERED: guaiFENesin 200 MG/10 ML 10 ML UNIT-DOSE CUPS PO PRN (10:47)
[2024-10-20] MEDS: methaDONE HCL 10 MG TABLET PO ONE (11:18)
[2024-10-21] MEDS: methaDONE HCL 10 MG TABLET PO ONE (09:31)
[2024-10-21] MEDS: amLODIPine BESYLATE 5 MG TABLET (FP) PO SCH (10:40)
[2024-10-22 07:28] VITALS: RESP 16
[2024-10-22] MEDS: methaDONE HCL 40 MG DISPERSABLE TABLET PO ONE (10:16)
[2024-10-22] MEDS: guaiFENesin 600 MG TABLET.ER (FP) PO PRN (10:50)
[2024-10-22 11:16] VITALS: BP 135/79; PULSE 72; TEMP 98.1
[2024-10-22] MEDS ORDERED: NALOXONE (NYS OPIOID OVERDOSE PROGRAM) 4 MG/0.1 ML SPRAY NS ONE (12:40)
[2024-10-22] MEDS: NALOXONE (NYS OPIOID OVERDOSE PROGRAM) 4 MG/0.1 ML SPRAY NS SCH (13:49)
[2024-10-23] MEDS ORDERED: methaDONE 40 MG, methaDONE 10 MG PO ONE (10:00)
[2024-10-23] MEDS ORDERED: methaDONE HCL 10 MG TABLET PO ONE (10:00)
== END 2024-10-22 12:40 | disposition home or self-care (01) | DRG 773 ==
LOC: YASAS 10:55 → Y6N 11:44
PROVIDERS: ADMIT Neuromusculoskeletal Medicine & OMM; ATTEND Family Medicine Addiction Medicine
PROC: HZ2ZZZZ Detoxification Services for Substance Abuse Treatment (ICD-10-PCS; principal; 2024-10-18)
DX: F10.230 Alcohol dependence with withdrawal, uncomplicated (principal); F11.20 Opioid dependence, uncomplicated; F14.20 Cocaine dependence, uncomplicated; F13.20 Sedative, hypnotic or anxiolytic dependence, uncomplicated; F12.20 Cannabis dependence, uncomplicated; F17.210 Nicotine dependence, cigarettes, uncomplicated; F19.282 Other psychoactive substance dependence with psychoactive substance-induced sleep disorder; F25.9 Schizoaffective disorder, unspecified; F19.24 Other psychoactive substance dependence with psychoactive substance-induced mood disorder; K21.9 Gastro-esophageal reflux disease without esophagitis; R03.0 Elevated blood-pressure reading, without diagnosis of hypertension; Z88.8 Allergy status to other drugs, medicaments and biological substances
CPT/HCPCS: 36415; 80053; 80305; 80307; 85027

== ENCOUNTER 2025-01-05 14:07 | Inpatient (IN) | payer OTHER ==
[2025-01-05 14:51] VITALS: BMI 22.8
[2025-01-05] MEDS ORDERED: IBUPROFEN 400 MG TABLET (FP) PO PRN (14:58)
[2025-01-05] MEDS ORDERED: NALOXONE (NARCAN) HCL 4 MG/0.1 ML SPRAY NS PRN (14:58)
[2025-01-05] MEDS ORDERED: MAGNESIUM HYDROX 2400MG/30ML ORAL SUSPENSION 30 ML CUP PO PRN (14:58)
[2025-01-05] MEDS ORDERED: hydrOXYzine PAMOATE 25 MG CAPSULE (FP) PO PRN (14:58)
[2025-01-05] MEDS ORDERED: BENZONATATE 200 MG CAPSULE PO PRN (14:58)
[2025-01-05] MEDS ORDERED: DICYCLOMINE HCL 10 MG CAPSULE PO PRN (14:58)
[2025-01-05] MEDS ORDERED: BISMUTH SUBSALICYLATE 262 MG/15 ML BTL PO PRN (14:58)
[2025-01-05] MEDS ORDERED: METHOCARBAMOL 500 MG TABLET PO PRN (14:58)
[2025-01-05] MEDS ORDERED: LOPERAMIDE HCL 2 MG CAPSULE PO PRN (14:58)
[2025-01-05] MEDS ORDERED: guaiFENesin 600 MG TABLET.ER (FP) PO PRN (14:58)
[2025-01-05] MEDS ORDERED: POLYETHYLENE GLYCOL (HEALTHYLAX) 3350 17 GM PACKET PO PRN (14:58)
[2025-01-05] MEDS ORDERED: MAG HYDROX/AL HYDROX/SIMETH 30 ML UNIT-DOSE CUP PO PRN (14:58)
[2025-01-05] MEDS ORDERED: ACETAMINOPHEN 325 MG TABLET (FP) PO PRN (14:58)
[2025-01-05] MEDS ORDERED: IBUPROFEN 600 MG TABLET (FP) PO PRN (14:58)
[2025-01-05] MEDS ORDERED: BENZOCAINE/MENTHOL (CHLORASEPTIC ) LOZENGE MM PRN (14:58)
[2025-01-05] MEDS ORDERED: ONDANSETRON *ODT* 4 MG TABLET SL PRN (14:58)
[2025-01-05] MEDS: methaDONE 80 MG, methaDONE 20 MG PO SCH (17:59)
[2025-01-05] MEDS: methaDONE HCL 10 MG TABLET PO SCH (18:01)
[2025-01-05] MEDS: NICOTINE POLACRILEX 2 MG GUM BUC PRN (18:38)
[2025-01-05] MEDS: MIRTAZAPINE 15 MG TABLET (FP) PO SCH (23:02)
[2025-01-05] MEDS: THIAMINE 100 MG TABLET PO SCH (23:02)
[2025-01-05] MEDS: diazePAM 5 MG TABLET PO SCH (23:04)
[2025-01-05] MEDS: MELATONIN 5 MG TABLETS PO SCH (23:07)
[2025-01-05] MEDS: ACAMPROSATE CALCIUM 333 MG TABLET.DR PO SCH (23:07)
[2025-01-06] MEDS ORDERED: methaDONE HCL 10 MG TABLET PO SCH (06:00)
[2025-01-06 09:43] LABS: HEMATOCRIT 28.6 % (40.1-51.0); HEMOGLOBIN 9.7 g/dL (13.7-17.5); MCHC 33.9 g/dl (32.3-36.5); MEAN CELL VOLUME 90.5 fl (79.0-92.2); MEAN PLT VOLUME 12.6 fl (9.4-12.4); PLATELET COUNT # 295 x10^3/uL (163-337)
[2025-01-06 09:53] LABS: CHLORIDE 107 mmol/L (98-107); POTASSIUM 4.2 mmol/L (3.5-5.1); SODIUM 142 mmol/L (136-145)
[2025-01-06 10:18] LABS: ANION GAP 5 mmol/L (4-13); BLOOD UREA NITROGEN 15.5 mg/dL (7-18); CO2 30 mmol/L (21-32)
[2025-01-06 10:19] LABS: ALBUMIN 3.1 g/dl (3.4-5.0); GLUCOSE,RANDOM 86 mg/dL (74-106)
[2025-01-06 10:22] LABS: SGOT/AST 17 U/L (15-37); SGPT/ALT 28 U/L (13-61)
[2025-01-06 10:24] LABS: ALK PHOS 76 U/L (45-117); BILIRUBIN,TOTAL 0.4 mg/dL (0.2-1); TOT PROT 5.6 g/dl (6.4-8.2)
[2025-01-06] MEDS: PRENATAL VITAMINS W/ FOLIC ACID TABLET (FP) PO SCH (10:29)
[2025-01-06] MEDS: NICOTINE 14 MG/24 HOURS TOPICAL PATCH TD SCH (10:31)
[2025-01-06] MEDS: FERROUS SO4 325 MG TABLET (FP) PO SCH (12:51)
[2025-01-06] MEDS: diazePAM 5 MG TABLET PO PRN (14:34)
[2025-01-06] MEDS: QUEtiapine FUMARATE 100 MG TABLET (FP) PO SCH (22:04)
[2025-01-06] MEDS: ARTIFICIAL TEARS OPHTHALMIC DROPS OU SCH (22:04)
[2025-01-07] MEDS: diazePAM 5 MG TABLET PO SCH (05:43)
[2025-01-08] MEDS: diazePAM 5 MG TABLET PO SCH (06:28)
[2025-01-08] MEDS: METOPROLOL TARTRATE 25 MG TABLET (FP) PO SCH (13:08)
[2025-01-09] MEDS: diazePAM 5 MG TABLET PO ONE (06:42)
[2025-01-09 09:34] VITALS: RESP 18
[2025-01-09 13:03] VITALS: BP 131/84; PULSE 81; TEMP 97.7
== END 2025-01-09 12:49 | disposition home or self-care (01) | DRG 773 ==
LOC: YASAS 14:07 → Y6N 15:50
PROVIDERS: ADMIT Allergy & Immunology; ATTEND Allergy & Immunology
PROC: HZ2ZZZZ Detoxification Services for Substance Abuse Treatment (ICD-10-PCS; principal; 2025-01-05)
DX: F10.230 Alcohol dependence with withdrawal, uncomplicated (principal); F13.230 Sedative, hypnotic or anxiolytic dependence with withdrawal, uncomplicated; F11.20 Opioid dependence, uncomplicated; F14.20 Cocaine dependence, uncomplicated; F17.210 Nicotine dependence, cigarettes, uncomplicated; F25.9 Schizoaffective disorder, unspecified; D50.9 Iron deficiency anemia, unspecified; K21.9 Gastro-esophageal reflux disease without esophagitis; R63.6 Underweight; Z68.22 Body mass index [BMI] 22.0-22.9, adult
CPT/HCPCS: 36415; 80053; 80305; 80307; 85027; 86780; 93005; 93010

== ENCOUNTER 2025-05-21 12:30 | Inpatient (IN) | payer OTHER ==
[2025-05-21 13:45] VITALS: BMI 22.8
[2025-05-21] MEDS ORDERED: MAGNESIUM HYDROX 2400MG/30ML ORAL SUSPENSION 30 ML CUP PO PRN (14:05)
[2025-05-21] MEDS ORDERED: MAG HYDROX/AL HYDROX/SIMETH 30 ML UNIT-DOSE CUP PO PRN (14:05)
[2025-05-21] MEDS ORDERED: IBUPROFEN 600 MG TABLET (FP) PO PRN (14:05)
[2025-05-21] MEDS ORDERED: ACETAMINOPHEN 325 MG TABLET (FP) PO PRN (14:05)
[2025-05-21] MEDS ORDERED: DICYCLOMINE HCL 10 MG CAPSULE PO PRN (14:05)
[2025-05-21] MEDS ORDERED: NALOXONE (NARCAN) HCL 4 MG/0.1 ML SPRAY NS PRN (14:05)
[2025-05-21] MEDS ORDERED: POLYETHYLENE GLYCOL (HEALTHYLAX) 3350 17 GM PACKET PO PRN (14:05)
[2025-05-21] MEDS ORDERED: BENZONATATE 200 MG CAPSULE PO PRN (14:05)
[2025-05-21] MEDS ORDERED: ONDANSETRON *ODT* 4 MG TABLET SL PRN (14:05)
[2025-05-21] MEDS ORDERED: BISMUTH SUBSALICYLATE 524 MG/30 ML PO PRN (14:05)
[2025-05-21] MEDS ORDERED: LOPERAMIDE HCL 2 MG CAPSULE PO PRN (14:05)
[2025-05-21] MEDS ORDERED: guaiFENesin 600 MG TABLET.ER (FP) PO PRN (14:05)
[2025-05-21] MEDS ORDERED: IBUPROFEN 400 MG TABLET (FP) PO PRN (14:05)
[2025-05-21] MEDS ORDERED: BENZOCAINE/MENTHOL (CHLORASEPTIC ) LOZENGE MM PRN (14:05)
[2025-05-21] MEDS: THIAMINE 100 MG TABLET PO SCH (22:49)
[2025-05-21] MEDS: METHOCARBAMOL 500 MG TABLET PO PRN (22:49)
[2025-05-21] MEDS: hydrOXYzine PAMOATE 25 MG CAPSULE (FP) PO PRN (22:49)
[2025-05-21] MEDS: MELATONIN 5 MG TABLETS PO SCH (22:49)
[2025-05-22] MEDS: NICOTINE POLACRILEX 2 MG GUM BUC PRN (07:14)
[2025-05-22 09:18] LABS: MCHC 35.7 g/dl (32.3-36.5); MEAN CELL VOLUME 88.9 fl (79.0-92.2); RDW 11.3 % (12.2-16.4)
[2025-05-22 09:31] LABS: CO2 28.0 mmol/L (21-32); GLUCOSE,RANDOM 97.0 mg/dL (74-106)
[2025-05-22 09:34] LABS: CREATININE 0.9 mg/dL (0.55-1.3); SGOT/AST 24.0 U/L (15-37); SGPT/ALT 29.0 U/L (13-61)
[2025-05-22 09:35] LABS: TOT PROT 6.9 g/dl (6.4-8.2)
[2025-05-22 09:36] LABS: ALK PHOS 86.0 U/L (45-117)
[2025-05-22] MEDS: PRENATAL VITAMINS W/ FOLIC ACID TABLET (FP) PO SCH (10:27)
[2025-05-22] MEDS: QUEtiapine FUMARATE 100 MG TABLET (FP) PO SCH (22:09)
[2025-05-23 13:37] VITALS: RESP 16
[2025-05-23 17:09] VITALS: BP 103/76; PULSE 69; TEMP 98.9
== END 2025-05-23 17:00 | disposition left against medical advice (07) | DRG 770 ==
LOC: YASAS 12:30 → Y6N 16:21
PROVIDERS: ADMIT Allergy & Immunology; ATTEND Allergy & Immunology
PROC: HZ2ZZZZ Detoxification Services for Substance Abuse Treatment (ICD-10-PCS; principal; 2025-05-21)
DX: F11.23 Opioid dependence with withdrawal (principal); F10.230 Alcohol dependence with withdrawal, uncomplicated; K21.9 Gastro-esophageal reflux disease without esophagitis; F12.20 Cannabis dependence, uncomplicated; D64.9 Anemia, unspecified
CPT/HCPCS: 36415; 80053; 80305; 80307; 85027; 86780; 93005; 93010

== ENCOUNTER 2025-07-17 21:25 | Inpatient (IN) | payer OTHER ==
[2025-07-17 22:20] VITALS: BMI 22.0
[2025-07-18] MEDS ORDERED: POLYETHYLENE GLYCOL (HEALTHYLAX) 3350 17 GM PACKET PO PRN (01:25)
[2025-07-18] MEDS ORDERED: IBUPROFEN 600 MG TABLET (FP) PO PRN (01:25)
[2025-07-18] MEDS ORDERED: NALOXONE (NARCAN) HCL 4 MG/0.1 ML SPRAY NS PRN (01:25)
[2025-07-18] MEDS ORDERED: BISMUTH SUBSALICYLATE 524 MG/30 ML PO PRN (01:25)
[2025-07-18] MEDS ORDERED: DICYCLOMINE HCL 10 MG CAPSULE PO PRN (01:25)
[2025-07-18] MEDS ORDERED: MAG HYDROX/AL HYDROX/SIMETH 30 ML UNIT-DOSE CUP PO PRN (01:25)
[2025-07-18] MEDS ORDERED: ONDANSETRON *ODT* 4 MG TABLET SL PRN (01:25)
[2025-07-18] MEDS ORDERED: BENZONATATE 200 MG CAPSULE PO PRN (01:25)
[2025-07-18] MEDS ORDERED: LOPERAMIDE HCL 2 MG CAPSULE PO PRN (01:25)
[2025-07-18] MEDS ORDERED: guaiFENesin 600 MG TABLET.ER (FP) PO PRN (01:25)
[2025-07-18] MEDS ORDERED: IBUPROFEN 400 MG TABLET (FP) PO PRN (01:25)
[2025-07-18] MEDS ORDERED: MAGNESIUM HYDROX 2400MG/30ML ORAL SUSPENSION 30 ML CUP PO PRN (01:25)
[2025-07-18] MEDS ORDERED: BENZOCAINE/MENTHOL (CHLORASEPTIC ) LOZENGE MM PRN (01:25)
[2025-07-18] MEDS ORDERED: ACETAMINOPHEN 325 MG TABLET (FP) PO PRN (01:25)
[2025-07-18] MEDS: PRENATAL VITAMINS W/ FOLIC ACID TABLET (FP) PO SCH (10:40)
[2025-07-18] MEDS: METHOCARBAMOL 500 MG TABLET PO PRN (10:40)
[2025-07-18] MEDS: NICOTINE 14 MG/24 HOURS TOPICAL PATCH TD SCH (10:41)
[2025-07-18] MEDS: NICOTINE POLACRILEX 2 MG GUM BUC PRN (10:44)
[2025-07-18 12:07] LABS: MCHC 34.7 g/dl (32.3-36.5); MEAN CELL VOLUME 91.3 fl (79.0-92.2); MEAN PLT VOLUME 12.4 fl (9.4-12.4); RDW 11.0 % (12.2-16.4)
[2025-07-18 13:23] LABS: GLUCOSE,RANDOM 77 mg/dL (74-106)
[2025-07-18 13:24] LABS: TOT PROT 6.4 g/dl (6.4-8.2)
[2025-07-18 13:25] LABS: CO2 25 mmol/L (21-32)
[2025-07-18 13:26] LABS: ALK PHOS 71 U/L (40-150)
[2025-07-18 13:29] LABS: CREATININE 1.06 mg/dL (0.55-1.3); SGOT/AST 30 U/L (5-34); SGPT/ALT 22 U/L (0-55)
[2025-07-18] MEDS: QUEtiapine FUMARATE 100 MG TABLET (FP) PO SCH (22:06)
[2025-07-18] MEDS: THIAMINE 100 MG TABLET PO SCH (22:06)
[2025-07-18] MEDS: MELATONIN 5 MG TABLETS PO SCH (22:07)
[2025-07-19] MEDS: hydrOXYzine PAMOATE 25 MG CAPSULE (FP) PO PRN (19:13)
[2025-07-20 09:16] VITALS: RESP 16
[2025-07-20 13:19] VITALS: BP 136/66; PULSE 76; TEMP 98.7
== END 2025-07-20 12:55 | disposition home or self-care (01) | DRG 773 ==
LOC: YASAS 21:25 → Y6N 07-18 02:38
PROVIDERS: ADMIT Allergy & Immunology; ATTEND Counselor Addiction (Substance Use Disorder)
PROC: HZ2ZZZZ Detoxification Services for Substance Abuse Treatment (ICD-10-PCS; principal; 2025-07-18)
DX: F10.230 Alcohol dependence with withdrawal, uncomplicated (principal); F11.20 Opioid dependence, uncomplicated; F14.20 Cocaine dependence, uncomplicated; F12.20 Cannabis dependence, uncomplicated; F17.210 Nicotine dependence, cigarettes, uncomplicated; F19.282 Other psychoactive substance dependence with psychoactive substance-induced sleep disorder; F19.24 Other psychoactive substance dependence with psychoactive substance-induced mood disorder; K21.9 Gastro-esophageal reflux disease without esophagitis; Z88.8 Allergy status to other drugs, medicaments and biological substances
CPT/HCPCS: 36415; 80053; 80305; 80307; 85027; 86780; 87811; 93005; 93010

== ENCOUNTER 2025-07-20 12:57 | Inpatient (IN) | payer OTHER ==
[2025-07-20] MEDS ORDERED: IBUPROFEN 400 MG TABLET (FP) PO PRN (19:19)
[2025-07-20] MEDS ORDERED: NICOTINE POLACRILEX 2 MG LOZENGE BC PRN (19:19)
[2025-07-20] MEDS ORDERED: ACETAMINOPHEN 325 MG TABLET (FP) PO PRN (19:19)
[2025-07-20] MEDS ORDERED: MAG HYDROX/AL HYDROX/SIMETH 30 ML UNIT-DOSE CUP PO PRN (19:19)
[2025-07-20] MEDS ORDERED: METHOCARBAMOL 500 MG TABLET PO PRN (19:19)
[2025-07-20] MEDS ORDERED: BENZOCAINE/MENTHOL (CHLORASEPTIC ) LOZENGE MM PRN (19:19)
[2025-07-20] MEDS ORDERED: LOPERAMIDE HCL 2 MG CAPSULE PO PRN (19:19)
[2025-07-20] MEDS ORDERED: IBUPROFEN 600 MG TABLET (FP) PO PRN (19:19)
[2025-07-20] MEDS ORDERED: POLYETHYLENE GLYCOL (HEALTHYLAX) 3350 17 GM PACKET PO PRN (19:19)
[2025-07-20] MEDS ORDERED: BENZONATATE 200 MG CAPSULE PO PRN (19:19)
[2025-07-20] MEDS ORDERED: guaiFENesin 600 MG TABLET.ER (FP) PO PRN (19:19)
[2025-07-20] MEDS: QUEtiapine FUMARATE 100 MG TABLET (FP) PO SCH (21:33)
[2025-07-20] MEDS: MELATONIN 5 MG TABLETS PO SCH (21:33)
[2025-07-20] MEDS: THIAMINE 100 MG TABLET PO SCH (21:33)
[2025-07-20] MEDS: hydrOXYzine PAMOATE 25 MG CAPSULE (FP) PO PRN (21:34)
[2025-07-20] MEDS ORDERED: ACAMPROSATE CALCIUM 333 MG TABLET.DR PO SCH (22:00)
[2025-07-21] MEDS: PRENATAL VITAMINS W/ FOLIC ACID TABLET (FP) PO SCH (05:25)
[2025-07-21] MEDS: NICOTINE POLACRILEX 2 MG GUM BUC PRN (06:50)
[2025-07-21] MEDS: NICOTINE 14 MG/24 HOURS TOPICAL PATCH TD SCH (09:10)
[2025-07-22] MEDS ORDERED: DICYCLOMINE HCL 10 MG CAPSULE PO PRN (14:25)
[2025-07-22] MEDS ORDERED: NALOXONE (NARCAN) HCL 4 MG/0.1 ML SPRAY NS PRN (14:25)
[2025-07-22] MEDS ORDERED: BISMUTH SUBSALICYLATE 524 MG/30 ML PO PRN (14:25)
[2025-07-23] MEDS: MAGNESIUM HYDROX 2400MG/30ML ORAL SUSPENSION 30 ML CUP PO PRN (18:21)
[2025-07-26 05:46] VITALS: BP 138/79; PULSE 61; RESP 16; TEMP 96.9
[2025-07-26] MEDS: ONDANSETRON *ODT* 4 MG TABLET SL PRN (05:48)
== END 2025-07-26 12:46 | disposition home or self-care (01) | DRG 773 ==
LOC: YASAS 12:57 → Y3NR 13:06 → Y3W 07-21 10:23
PROVIDERS: ADMIT Psychiatry & Neurology Pain Medicine; ATTEND Psychiatry & Neurology Pain Medicine
PROC: HZ2ZZZZ Detoxification Services for Substance Abuse Treatment (ICD-10-PCS; principal; 2025-07-20)
DX: F10.230 Alcohol dependence with withdrawal, uncomplicated (principal); F11.23 Opioid dependence with withdrawal; F12.20 Cannabis dependence, uncomplicated; F14.20 Cocaine dependence, uncomplicated; K21.9 Gastro-esophageal reflux disease without esophagitis; F17.210 Nicotine dependence, cigarettes, uncomplicated; F20.9 Schizophrenia, unspecified; F41.9 Anxiety disorder, unspecified
CPT/HCPCS: 36415; 86803; Q0162